=== PATIENT | female | born 1955 | race Caucasian/White ===

== ENCOUNTER 2016-05-27 20:10 | Emergency (ER) | payer OTHER ==
[~2016-05-27] VITALS: Ht 160 cm; Wt 62.1 kg
[~2016-05-27 20:10] MED LIST: ALUM-30 PO; ATOR-22 PO; CALC500C3 PO; LEVO100T7 PO
[2016-05-27 20:16] VITALS: TEMP 36.8; Ht 160 cm; Wt 62.1 kg
[2016-05-27 20:42] VITALS: O2SAT 97
[2016-05-27] MEDS ORDERED: LABETALOL HCL IV 5 MG/ML 20ML IV STA (20:42)
--- NOTE | 2016-05-27 21:10 | EMERGENCY ROOM VISIT NOTE ---
History Report prepared by Nirmal: Yenifer Devries Under the Supervision of: Dr. Jerome Meehan M.D. First contact with patient: 20:40 Chief Complaint: HYPERTENSION Stated Complaint: HIGH BLOOD PRESSURE, IRREGULAR HEART BEAT History of Present Illness The patient is a 60 year old female who presents to the Emergency Room with complaints of intermittent hypertension starting in January 2016. The patient was evaluated in the Emergency Room on February 11 for hypertension. The patient was found to have thyroid problems and she was prescribed 100 mcg of thyroid medications. In late January, the patient was taken off of the thyroid medication by her PCP. A few days later, she started having hypertension. The patient was then started on a diuretic which somewhat improved her blood pressure. This time, she was not placed on any thyroid medication and did not have any problems with her thyroid function. About 2 weeks ago, the patient started having intermittent shakiness, nausea, and weakness. Her PCP prescribed her 88 mg of thyroid medication. On May 19, she took 88 mg of the thyroid medication and started having heart palpitations, a tachycardic rate, hypertension, and a headache. The patient was taken off of the thyroid medication and she was placed on Metoprolol. A few days ago, the patient had repeat blood work which showed hypothyroidism. The patient was placed on 44 mg of thyroid medication. She took the 44 mg of thyroid medication for the first time this morning. About 8 hours ago, the patient started having shakiness and hypertension. Her blood pressure was 172/103. She took Metoprolol about 2 hours ago without relief. The patient denies any chest pain, shortness of breath, or any other complaints. Source of History: patient Onset: January 2016 Position: other (global) Symptom Intensity: 172/103 Quality: other (hypertension) Modifying Factors (Relieving): other (Metoprolol without relief) Associated Symptoms: No SOB, No chest pain Review of Systems See HPI for pertinent positives & negatives. A total of 10 systems reviewed and were otherwise negative. Past Medical & Surgical Medical Problems: (1) High cholesterol Surgical Problems: (1) S/P Mohs surgery for basal cell carcinoma Family History Diabetes mellitus FH: heart disease FHx: hypertension Social History Smoking Status: Never Smoker Alcohol Use: none Drug Use: none Marital Status: Housing Status: lives with significant other Occupation Status: retired Current/Historical Medications Scheduled Atorvastatin (Lipitor), 20 MG PO QAM Chlorthalidone (Hygroton), 12.5 MG PO DAILY Metoprolol Succinate (Toprol Xl), 25 MG PO DAILY Scheduled PRN Calcium Carbonate (Tums), 500-1,000 MG PO DIRECTED PRN for Gas or Constipation Allergies Coded Allergies: Penicillins (Verified Allergy, Intermediate, childhood allergy, 02/12/16) Physical Exam Vital Signs Date Time Temp Pulse Resp B/P Pulse Ox O2 Delivery O2 Flow Rate FiO2 05/27/16 22:33 78 20 146/64 95 Room Air 05/27/16 21:58 71 20 133/79 97 Room Air 05/27/16 21:21 77 18 136/83 94 Room Air 05/27/16 21:02 76 20 161/94 96 Room Air 05/27/16 20:42 97 Room Air 05/27/16 20:36 92 05/27/16 20:16 36.8 110 16 160/98 98 Room Air Physical Exam GENERAL: Patient is in no acute distress. HEENT: No acute trauma, normocephalic atraumatic, mucous membranes moist, no nasal congestion, no scleral icterus. NECK: No stridor, no adenopathy, no meningismus, trachea is midline. LUNGS: Clear to auscultation bilaterally, no wheeze, no rhonchi, breath sounds equal. HEART: Without murmurs gallops or rubs, regular rate and rhythm. ABDOMEN: Soft, nontender, bowel sounds positive, no hernias, no peritonitis. EXTREMITIES: No cyanosis or edema, full range of motion of all the joints without pain or difficulty, no signs for acute trauma. NEUROLOGIC: Oriented x 3, no acute motor or sensory deficits, no focal weakness. SKIN: No rash, no jaundice, no diaphoresis. Medical Decision & Procedures ER Provider Diagnostic Interpretation: X-ray results as stated below per interpretation by me and the radiologist: CHEST ONE VIEW PORTABLE CLINICAL HISTORY: HIGH BLOOD PRESSURE COMPARISON STUDY: 02/12/2016 FINDINGS: The heart is normal in size. There is diffuse elevation of the interstitium. This likely indicates mild pulmonary vascular congestion or less likely interstitial inflammatory process. There are no pleural effusions. There is no lobar consolidation.[ IMPRESSION: Diffuse elevation of the interstitium, possibly secondary to pulmonary vascular congestion. An interstitial inflammatory process could appear similar. Clinical and radiographic follow-up is recommended Electronically signed by: Daryl Katz M.D. 05/27/2016 9:34 PM Dictated Date/Time: 05/27/2016 9:33 PM Laboratory Results 05/27/16 21:00 Red Blood Count 5.20, Mean Corpuscular Volume 83.1, Mean Corpuscular Hemoglobin 29.4, Mean Corpuscular Hemoglobin Concent 35.4, Mean Platelet Volume 10.7, Neutrophils (%) (Auto) 49.1, Lymphocytes (%) (Auto) 40.0, Monocytes (%) (Auto) 9.6, Eosinophils (%) (Auto) 0.8, Basophils (%) (Auto) 0.4, Neutrophils # (Auto) 4.14, Lymphocytes # (Auto) 3.37, Monocytes # (Auto) 0.81, Eosinophils # (Auto) 0.07, Basophils # (Auto) 0.03 05/27/16 21:00 Test 05/27/16 21:00 White Blood Count 8.43 K/uL (4.8-10.8) Red Blood Count 5.20 M/uL (4.2-5.4) Hemoglobin 15.3 g/dL (12.0-16.0) Hematocrit 43.2 % (37-47) Mean Corpuscular Volume 83.1 fL (80-100) Mean Corpuscular Hemoglobin 29.4 pg (25-34) Mean Corpuscular Hemoglobin Concent 35.4 g/dl (32-36) Platelet Count 253 K/uL (130-400) Mean Platelet Volume 10.7 fL (7.4-10.4) Neutrophils (%) (Auto) 49.1 % Lymphocytes (%) (Auto) 40.0 % Monocytes (%) (Auto) 9.6 % Eosinophils (%) (Auto) 0.8 % Basophils (%) (Auto) 0.4 % Neutrophils # (Auto) 4.14 K/uL (1.4-6.5) Lymphocytes # (Auto) 3.37 K/uL (1.2-3.4) Monocytes # (Auto) 0.81 K/uL (0.11-0.59) Eosinophils # (Auto) 0.07 K/uL (0-0.5) Basophils # (Auto) 0.03 K/uL (0-0.2) RDW Standard Deviation 39.2 fL (36.4-46.3) RDW Coefficient of Variation 13.1 % (11.5-14.5) Immature Granulocyte % (Auto) 0.1 % Immature Granulocyte # (Auto) 0.01 K/uL (0.00-0.02) Anion Gap 10.0 mmol/L (3-11) Est Creatinine Clear Calc Drug Dose 61.1 ml/min Estimated GFR () 93.0 Estimated GFR (Non- 80.2 BUN/Creatinine Ratio 18.1 (10-20) Calcium Level 9.8 mg/dl (8.5-10.1) Magnesium Level 2.0 mg/dl (1.8-2.4) Total Bilirubin 0.6 mg/dl (0.2-1) Aspartate Amino Transf (AST/SGOT) 17 U/L (15-37) Alanine Aminotransferase (ALT/SGPT) 18 U/L (12-78) Alkaline Phosphatase 67 U/L (45-117) Pro-B-Type Natriuretic Peptide 62 pg/ml (0-900) Total Protein 7.8 gm/dl (6.4-8.2) Albumin 4.0 gm/dl (3.4-5.0) Globulin 3.8 gm/dl (2.5-4.0) Albumin/Globulin Ratio 1.1 (0.9-2) Thyroid Stimulating Hormone (TSH) 7.090 uIu/ml (0.300-4.500) Free Thyroxine 1.15 ng/dl (0.80-1.60) Laboratory results reviewed by me. Medications Administered Medications (Trade) Dose Ordered Sig/Fern Route Start Time Stop Time Status Last Admin Dose Admin Labetalol HCl (Normodyne IV) 10 mg NOW STAT IV 05/27/16 20:42 05/27/16 20:53 DC 05/27/16 21:01 10 MG ECG Indication: other (Hypertension) Rate (beats per minute): 92 Rhythm: normal sinus Findings: no acute ischemic change, no ectopy ED Course 2039: The patient was evaluated in room B11B. A complete history and physical exam was performed. 2041: Labetalol HCl 10 mg IV 2222: Reevaluated the patient. Discussed results and discharge instructions: She verbalized understanding and agreement. The patient is ready for discharge. Medical Decision Differential diagnosis includes but is not limited to medication reaction, hypothyroid, electrolyte imbalance, hypertension, anemia, anxiety. There is no leukocytosis or concerning anemia. No significant electrolyte abnormality, kidney failure or hepatitis. TSH was slightly high, T4 level was normal. EKG shows a normal sinus rhythm, no acute ischemia. Chest x-ray shows what I believe to be under penetration, no focal infiltrate. No mediastinal widening. The radiologist questioned CHF. A BNP was ordered, this result returned negative, no evidence for CHF by laboratory testing. The patient received IV labetalol, she has done well, her blood pressure is now nicely controlled. She is asymptomatic. I think the patient should stop taking her thyroid medication as every time she takes it, she has a similar reaction to tonight's reaction. She is being referred to her family doctor's office and then likely to endocrinology. She will keep her blood pressure medications the same. If things are worsening, she can return for reassessment. Impression Primary Impression: Hypertension Additional Impression: Palpitations Scribe Attestation The scribe's documentation has been prepared under my direction and personally reviewed by me in its entirety. I confirm that the note above accurately reflects all work, treatment, procedures, and medical decision making performed by me. Departure Information Dispostion Home / Self-Care Referrals Jose Marks M.D. (PCP) Forms HOME CARE DOCUMENTATION FORM, IMPORTANT VISIT INFORMATION, WORK / SCHOOL INSTRUCTIONS Patient Instructions My [facility] [employer] Additional Instructions no more thyroid meds until talk with endocrinology all other meds the same return if worsening lab testing today was ok--thyroid maybe slightly underactive Problem Qualifiers
[2016-05-27 21:15] LABS: BASO % 0.4 %; BASO ABS # 0.03 K/uL (0-0.2); COMPLETE YES; EOS % 0.8 %; HEMATOCRIT 43.2 % (37-47); IG% 0.1 %; LYMPH ABS # 3.37 K/uL (1.2-3.4); MEAN CELL VOLUME 83.1 fL (80-100); MEAN CORPUSCULAR HEMOGLOBIN 29.4 pg (25-34); MEAN CORPUSCULAR HGB CONC 35.4 g/dl (32-36); MEAN PLATELET VOLUME 10.7 fL (7.4-10.4); MONO % 9.6 %; NEUT % 49.1 %; PLATELET COUNT 253 K/uL (130-400); WHITE BLOOD COUNT 8.43 K/uL (4.8-10.8)
--- NOTE | 2016-05-27 21:35 | DIAGNOSTIC IMAGING REPORT ---
CHEST ONE VIEW PORTABLE CLINICAL HISTORY: HIGH BLOOD PRESSURE COMPARISON STUDY: 02/12/2016 FINDINGS: The heart is normal in size. There is diffuse elevation of the interstitium. This likely indicates mild pulmonary vascular congestion or less likely interstitial inflammatory process. There are no pleural effusions. There is no lobar consolidation.[ IMPRESSION: Diffuse elevation of the interstitium, possibly secondary to pulmonary vascular congestion. An interstitial inflammatory process could appear similar. Clinical and radiographic follow-up is recommended Electronically signed by: Daryl Katz M.D. 05/27/2016 9:34 PM Dictated Date/Time: 05/27/2016 9:33 PM
[2016-05-27 21:39] LABS: BUN/CREATININE RATIO 18.1 (10-20); CALCIUM 9.8 mg/dl (8.5-10.1); CREATININE 0.79 mg/dl (0.60-1.20); POTASSIUM 3.4 mmol/L (3.5-5.1)
[2016-05-27] MEDS ORDERED: HYG/25 PO (21:42)
[2016-05-27] MEDS ORDERED: METO25TA3 PO (21:42)
[2016-05-27 21:50] LABS: ALB/GLOB RATIO 1.1 (0.9-2); THYROID STIMULATING HORMONE 7.09 uIu/ml (0.300-4.500)
[2016-05-27 22:33] VITALS: BP 146/64; PULSE 78; O2SAT 95
== END 2016-05-27 22:35 | disposition home or self-care (01) ==
LOC: C.EDB 20:11
DX: I10 Essential (primary) hypertension (principal); R00.2 Palpitations; E78.00 Pure hypercholesterolemia, unspecified; Z82.49 Family history of ischemic heart disease and other diseases of the circulatory system

== ENCOUNTER 2024-09-16 09:09 | Inpatient (IN) ==
--- NOTE | 2024-09-16 09:30 | Emergency Department Note ---
Impression & Plan Hypoxia, Compression fracture of T11 vertebra, Syncope, Fall, Acute pain of left hip, Pain in left lumbar region of back, Hypomagnesemia ED Provider Note CHIEF COMPLAINT: Fall, dizziness, left hip and back pain HISTORY OF PRESENTING ILLNESS: The patient is a 68-year-old female presents to the emergency department with her reporting that 2 days ago she did not feel well and was having episodes of diarrhea. She states that she felt like she did when she had COVID previously. Last evening she woke up to take a COVID test when suddenly she felt dizzy and does not remember what happened after that. She confirms waking up in another room with the left hip and back pain. She states that she was able to ambulate from the house to the car but with a significant amount of discomfort. She was using a wheelchair here in the emergency department. states that when he found her initially after the fall he was yelling at her for about a minute to get her attention. He demoes seizure like activity. She denies fevers, shortness of breath, chest pain, abdominal pain, urinary symptoms, nausea, vomiting, changes in vision, slurred speech, facial droop. She states that she is no longer having any episodes of diarrhea. She also states that she does not currently feel lightheaded or dizzy. REVIEW OF SYSTEMS: See HPI for pertinent positives and pertinent negatives. ALLERGIES: Penicillin, triamterene, hydrochlorothiazide MEDICATIONS: See below PAST MEDICAL HISTORY: See below PHYSICAL EXAM: VITALS: Vitals are noted on the nurse's note and reviewed by myself. Patient was hypoxic at 86% moving from the wheelchair to the bed initially. She was placed on 2% nasal cannula and was between 95-98%. When she ambulated to the restroom she dropped to 77% on room air. He was placed on 2 L nasal cannula and remained above 94%. All other vital stable. GENERAL: 68-year-old female, lying in bed, in no acute distress, nondiaphoretic, well-developed well-nourished. SKIN: Capillary refill less than 2 seconds. No rashes on exam. There is a linear area of ecchymosis on the left side of her back from the top of her scapula down to the mid back area. HEENT: Normocephalic. Atraumatic. PERRLA. EOMI. Nares patent. Mucous membranes moist. Neck is supple without nuchal rigidity. Neck FROM. TM visualized bilaterally without abnormality. Throat without tonsillar hypertrophy, tonsillar exudates, uvula is midline. Normal dentition. HEART: Regular rate and rhythm without murmurs gallops or rubs. LUNGS: Clear to auscultation bilaterally without wheezes, rales or rhonchi. No retractions or accessory muscle use. ABDOMEN: Positive bowel sounds x 4. Soft, nontender, without masses or organomegaly. No guarding or rebound tenderness. MUSCULOSKELETAL: Tenderness to palpation of the left hip. Physical exam was limited secondary to patient discomfort. She moves around slowly when asked. Tenderness upon palpation to the lumbar spine paraspinal region. 2+ dorsal pedis pulse palpated bilaterally. No tremors, tics, or fasciculations. NEURO: Patient was alert and oriented to person place and time. Normal sensation to light and sharp touch. No focal neurological deficits. DIFFERENTIAL DIAGNOSIS: ED COURSE AND MEDICAL DECISION MAKING: HISTORY FROM INDEPENDENT HISTORIAN: The patient herself and her . MEDICATIONS GIVEN: Tylenol 1000 mg IV, 1 L normal saline, morphine 2 mg IV, 4 mg Zofran IV MONITOR: Continuous cafeteria monitor: Order was placed for continuous cafeteria monitor. Patient was placed on the cafeteria monitor and continuous pulse ox. Patient was noted to be in normal sinus rhythm at an initial rate of 100 bpm per my interpretation. EKG: EKG was interpreted by myself as normal sinus rhythm. No obvious arrhythmias. INTERPRETATION OF LABS: I interpreted the labs with full lab results as below in the lab section of this note. Pertinent lab results discussed in the MDM section below. INTERPRETATION OF IMAGING: Imaging studies were interpreted by myself and read by radiology as per the imaging section of this note. CT head - No acute intracranial abnormality. Chest x-ray - No acute cardiopulmonary process. Mild right basilar atelectasis versus scarring. No pneumothorax or pleural effusion. No pneumonia. X-ray left hip - No acute fracture or dislocation. Mild osteoarthritis. X-ray lumbar spine - No acute fracture or subluxation. Chronic L1 and L4 compression deformities. Levoscoliosis. CTA - No pulmonary emboli visualized. Bibasilar densities suggesting atelectasis/scarring. CT abdomen pelvis - Acute to subacute mild T11 compression deformity without retropulsion. Chronic lumbar spine compression fracture. No bowel obstruction or bowel wall thickening. ESCALATION OF CARE CONSIDERED: Escalation of care was considered to the patient having 2 syncopal episodes and presenting to the ER for evaluation. Thorough workup was completed but the patient became hypoxic in the 70s upon ambulating on 2 different occasions. The patient was admitted to the hospitalist team for further evaluation. CONSULTATIONS: On-call [facility] hospitalist Dora Caldera presented the patient to the provider and inform them that a full workup was completed here in the emergency department significant findings but that the patient becomes hypoxic at 75-78% upon ambulating and standing up. Discussed admission with him for further workup of hypoxia and they agreed to evaluate the patient for admission. MDM SUMMARY: I evaluated this 68-year-old female presents the ER due to left hip and back pain as well as feeling dizzy and falling last evening not remembering the event. She confirms waking up last night to take a COVID test when she suddenly felt dizzy and woke up in another room and not remembering the events. Informed that she thinks she had fallen down on her left hip and back and reports pain. She was able to ambulate but with significant discomfort. She denies fevers, shortness of breath, chest pain, abdominal pain, urinary symptoms, nausea, vomiting, changes in vision, slurred speech, facial droop. She states that she is no longer having any episodes of diarrhea. She also states that she does not currently feel lightheaded or dizzy. On exam she is lying comfortably in bed. Her vitals were stable in triage but when she was moved from the wheelchair into the bed he was hypoxic at 85%. The patient was started on 2 L nasal cannula. She is now ranging from 93 to 96%. She does not use oxygen normally. She is afebrile. There is a linear area of ecchymosis appreciated on the left side of her back from the scapula down the middle region of her back. She does not remember the event but it appears as if she had fallen into the corner of a door. HEENT exam is unremarkable. Chest auscultation reveals RRR without murmurs. The lungs are clear to auscultation bilaterally without wheezing rhonchi or rales. The abdomen is soft and nontender. Tenderness upon palpation to the left hip and the lumbar back. Physical exam is extremely limited secondary to patient discomfort. Neurovascularly intact. Patient was alert and oriented. No focal neurological deficits. Patient confirms taking an extra strength Tylenol this morning 3 hours ago. Leukocytosis WBC elevated 13.05. RBC 4.82. Hemoglobin hematocrit 13.5/39.9. No electrolyte abnormalities. BUN elevated 28. Creatinine elevated 1.75. I discussed this with the patient and she states, "I took a medication and had an adverse reaction to it and it impacted my kidneys". She does confirm that these levels have been elevated in the past and that she has been following up with her primary care provider for reevaluations. She reports most recent blood work completed by primary care BUN 23 and creatinine 1.3. These are elevated today in comparison. She does confirm that she has been dehydrated the past couple of days and has not been drinking a lot of water. 1 L normal saline was provided. Glucose 114. AST 26. ALT 21. Troponin normal 3.9. BNP 29. Magnesium low 1.6. This was repleted. Bio fire results negative. EKG shows an initial rate of [address] head shows no acute intracranial abnormality. Chest x-ray without cardiopulmonary process. X-ray of the left hip and lumbar spine show no acute fracture or subluxation. Chronic findings were thoroughly reviewed with the patient. On the patient ambulated to the restroom to provide a urine sample she dropped to 84% on room air. The patient was placed on 2 L nasal cannula and returned to 95-98%. CTA chest and CT abdomen pelvis were ordered to further investigate why the patient is becoming hypoxic. CTA shows no pulmonary emboli. Bibasilar densities suggesting atelectasis/scarring which is also seen on chest x-ray. CT abdomen pelvis shows an acute mild T11 compression deformity without retropulsion. No other acute findings on imaging. Ambulated once again to use the restroom and dropped again to 77% on room air. Patient denies shortness of breath but on exam is visibly short of breath and gasping for air. Patient was placed on 3 L nasal cannula and returned to 98% on room air. I discussed with the patient that it is not safe for her to go home at this time and that it is best she is admitted to the hospital for further evaluation of her hypoxia. Patient is tearful on exam but agrees to the plan. [facility] They agreed to admission of the patient and would personally evaluate her. The patient was admitted in stable condition. DIAGNOSIS: Hypoxia, compression fracture of T11 vertebra, syncope, fall, acute pain of left hip, pain in left lumbar region of back, hypomagnesemia The chart was completed utilizing [employer] Speech voice recognition software. Grammatical errors, random word insertions, pronoun errors, and incomplete sentences are an occasional consequence of this system due to software limitations, ambient noise, and hardware issues. Any formal questions or concerns about the content, text, or information contained within the body of this dictation should be directly addressed to the provider for clarification. Past Med/Surg History Problem List (Updated 09/16/24 @ 15:29 by Yasmine Farah MD) Abnormal CT of the chest Acute hypoxic respiratory failure Hypomagnesemia (Acute) Pain in left lumbar region of back (Acute) Acute pain of left hip (Acute) Fall (Acute) Syncope (Acute) Compression fracture of T11 vertebra (Acute) Hypoxia (Acute) Osteoarthritis of left knee Hematuria, microscopic High cholesterol (Chronic) Hypertension (Acute) Medical History (Updated 09/16/24 @ 15:29 by Yasmine Farah MD) Hypothyroidism Essential hypertension Family History Father Diabetes Heart disease Hypertension Sister Cervical cancer Social History Smoking Status: Never smoker Hx Alcohol Use: No Hx Substance Use: No Preferred Language: Yi Communication Ability: Effective Urban [employer]ster Required: No Beliefs That Will Affect Care: None marital status: Current Living Situation: Spouse current occupational status: retired Feels Safe at Home: Yes Safety Concerns: Feels Safe At This Time Assistive Devices: None Allergies Allergies Allergy/AdvReac Type Severity Reaction Status Date / Time hydrochlorothiazide Allergy Severe Rash Unverified 09/16/24 11:13 [From Maxzide] triamterene [From Maxzide] Allergy Severe Rash Unverified 09/16/24 11:13 Penicillins Allergy Intermediate childhood Verified 09/16/24 11:13 allergy Home Meds Home Medications Medication Instructions Recorded Confirmed metoprolol succinate 100 mg 100 mg PO QAM 05/26/19 09/16/24 tablet,extended release 24 hr atorvastatin 40 mg tablet 40 mg PO QAM 10/18/23 09/16/24 levothyroxine 50 mcg tablet 50 mcg PO QAM 10/18/23 09/16/24 amlodipine 5 mg tablet 5 mg PO HS 09/16/24 09/16/24 omeprazole magnesium 20 mg 20 mg PO QAM 09/16/24 09/16/24 tablet,delayed release (Prilosec OTC) Results & Data (ED) Vital Signs Vital Signs - 24 hr 09/16/24 09:23 09/16/24 09:26 09/16/24 09:27 Temperature 36.4 C L Temperature Source Temporal Artery Scan Pulse Rate - Lying Pulse Rate - Sitting Pulse Rate - Standing Pulse Rate 86 Pulse Rate [Apical] 91 H Respiratory Rate 20 20 Respiratory Effort / Characteristics Non-Labored Spontaneous Non-Labored Spontaneous Respiratory Depth Normal Normal Respiratory Pattern Regular Regular Blood Pressure - Lying Blood Pressure - Sitting Blood Pressure- Standing Blood Pressure 95/65 L Blood Pressure [Right Arm] 106/76 Blood Pressure Mean 75 Blood Pressure Mean [Right Arm] 86 Blood Pressure Position [Right Arm] Sitting Pulse Oximetry 94 84 L 95 Oxygen Delivery Method Room Air Room Air Nasal Cannula Oxygen Flow Rate 2 Sepsis Recent Fever Within 48 Hours No Sepsis New/Unexplained Change in Mental Status N/A Sepsis Action Taken by Nursing No Action Required 09/16/24 09:41 09/16/24 09:45 09/16/24 13:10 Temperature Temperature Source Pulse Rate - Lying Pulse Rate - Sitting Pulse Rate - Standing Pulse Rate 90 Pulse Rate [Apical] 68 Respiratory Rate 18 Respiratory Effort / Characteristics Non-Labored Spontaneous Respiratory Depth Normal Respiratory Pattern Regular Blood Pressure - Lying Blood Pressure - Sitting Blood Pressure- Standing Blood Pressure Blood Pressure [Right Arm] 115/73 Blood Pressure Mean Blood Pressure Mean [Right Arm] 87 Blood Pressure Position [Right Arm] Sitting Pulse Oximetry 95 95 Oxygen Delivery Method Nasal Cannula Nasal Cannula Oxygen Flow Rate 2 3 Sepsis Recent Fever Within 48 Hours Sepsis New/Unexplained Change in Mental Status Sepsis Action Taken by Nursing 09/16/24 13:16 09/16/24 13:55 Temperature Temperature Source Pulse Rate - Lying 76 Pulse Rate - Sitting 84 Pulse Rate - Standing 83 Pulse Rate 79 Pulse Rate [Apical] Respiratory Rate Respiratory Effort / Characteristics Respiratory Depth Respiratory Pattern Blood Pressure - Lying 136/76 Blood Pressure - Sitting 133/80 Blood Pressure- Standing 116/67 Blood Pressure Blood Pressure [Right Arm] Blood Pressure Mean Blood Pressure Mean [Right Arm] Blood Pressure Position [Right Arm] Pulse Oximetry Oxygen Delivery Method Oxygen Flow Rate Sepsis Recent Fever Within 48 Hours Sepsis New/Unexplained Change in Mental Status Sepsis Action Taken by Nursing Laboratory Data 09/16/24 10:15 09/16/24 09:41 Lab Results 09/16/24 09/16/24 09/16/24 Range/Units 09:35 09:41 10:15 WBC Cancelled RBC Hgb Hct MCV MCH MCHC RDW Std Deviation RDW Coeff of [place] Plt Count MPV Immature Gran % (Auto) Neut % (Auto) Lymph % (Auto) [place] % (Auto) Eos % (Auto) Baso % (Auto) Neut # (Auto) Lymph # (Auto) [place] # (Auto) Eos # (Auto) Baso # (Auto) Immature Gran # (Auto) Absolute Nucleated RBC Nucleated RBC % (auto) Neutrophils % (Manual) Band Neutrophils % Lymphocytes % (Manual) Prolymphocyte % Reactive Lymphs % (Man) Monocytes % (Manual) Eosinophils % (Manual) Basophils % (Manual) Metamyelocytes % (Man) Myelocytes % (Man) Promyelocytes % (Man) Blast Cells % (Manual) Plasma Cell % (Manual) Other Cells % Nucleated RBC % Neutrophils # (Manual) Band Neutrophils # Total Absolute Neuts Lymphocytes # (Manual) Prolymphocyte # Reactive Lymphs # Total Abs Lymphocytes Monocytes # (Manual) Eosinophils # (Manual) Basophils # (Manual) Metamyelocytes # (Man) Myelocytes # (Manual) Promyelocytes # (Man) Blast Cells # (Man) Plasma Cell # (Manual) Other Cells # Nucleated RBCs # (Man) Hypersegmented Neuts Hyposegmented Neuts Hypogranular Neuts Large Granular Lymphs # Lrg Granular Lymphs Hairy Cells Smudge Cells Toxic Granulation Toxic Vacuolation Dohle Bodies Shell Rods Platelet Estimate Hypogranular Platelets Giant Platelets Platelet Satelliting RBC Morphology Polychromasia Hypochromasia Poikilocytosis Basophilic Stippling Anisocytosis Microcytosis Macrocytosis Spherocytes Pappenheimer Bodies Sickle Cells Target Cells Tear Drop Cells Ovalocytes Stomatocytes [place] Bodies Echinocytes Acanthocytes (Spur) Rouleaux RBC Agglutinates Schistocytes Sezary Cell Sodium 136 (136-145) mmol/L Potassium 3.9 (3.5-5.1) mmol/L Chloride 103 (98-107) mmol/L Carbon Dioxide 22 (21-32) mmol/L Anion Gap 11 (3-11) BUN 28 H (6-23) mg/dl Creatinine 1.75 H (0.6-1.2) mg/dl Est Cr Clr Drug Dosing Not Reportable eGFR 30.96 BUN/Creatinine Ratio 16.0 (10-20) Glucose 114 H (70-99(Fasting)) mg/dl Calcium 9.5 (8.6-10.3) mg/dl Magnesium 1.6 L (1.7-2.4) mg/dl Total Bilirubin 0.6 (0.2-1.0) mg/dl AST 26 (13-39) U/L ALT 21 (7-52) U/L Alkaline Phosphatase 84 (34-104) U/L Troponin I High Sens 3.9 (0-14) pg/ml Total Protein 7.9 (6.0-8.3) gm/dl Albumin 4.3 (3.4-5.0) gm/dl Globulin 3.6 (2.5-4.0) gm/dl Albumin/Globulin Ratio 1.2 (0.9-2) 25-OH Vitamin D Total 37.1 (30-100) ng/ml TSH 3.827 (0.300-4.500) uIu/ml Urine Color Urine Appearance (Clear) Urine pH (4.5-7.5) Ur Specific [place] (1.000-1.030) Urine Protein (Negative) Urine Glucose (UA) (Negative) Urine Ketones (Negative) Urine Blood (Negative) Urine Nitrite (Negative) Urine Bilirubin (Negative) Urine Urobilinogen (Negative) Ur Leukocyte Esterase (Negative) Urine WBC (Auto) (0-5) /hpf Urine RBC (Auto) (0-2) /hpf U Hyaline Cast (Auto) (0-2) /lpf U Epithel Cells (Auto) (0-2) /hpf Urine Bacteria (Auto) (None Seen) Granular Casts (None Prsent) /lpf Urine Comment Adenovirus (PCR) Not Detected (NotDetected) B. pertussis DNA (PCR) Not Detected (NotDetected) B.parapertussis DNA PCR Not Detected (NotDetected) C. pneumoniae DNA (PCR) Not Detected (NotDetected) Coronavirus OC43 (PCR) Not Detected (NotDetected) Coronavirus HKU1 (PCR) Not Detected (NotDetected) Coronavirus 229E (PCR) Not Detected (NotDetected) SARS-CoV-2 (PCR) Not Detected (NotDetected) Coronavirus NL63 (PCR) Not Detected (NotDetected) Human Metapneumovir PCR Not Detected (NotDetected) Influenza Type A (PCR) Not Detected (NotDetected) Influenza Type B (PCR) Not Detected (NotDetected) M. pneumoniae (PCR) Not Detected (NotDetected) Parainfluenza 1 (PCR) Not Detected (NotDetected) Parainfluenza 2 (PCR) Not Detected (NotDetected) Parainfluenza 3 (PCR) Not Detected (NotDetected) Parainfluenza 4 (PCR) Not Detected (NotDetected) RSV (PCR) Not Detected (NotDetected) Entero/Rhino (PCR) Not Detected (NotDetected) Blood Parasites ID 09/16/24 09/16/24 09/16/24 Range/Units 10:15 10:15 10:15 WBC 13.05 H RBC Cancelled 4.82 Hgb Cancelled 13.5 Hct Cancelled MCV MCH MCHC RDW Std Deviation RDW Coeff of [place] Plt Count MPV Immature Gran % (Auto) Neut % (Auto) Lymph % (Auto) [place] % (Auto) Eos % (Auto) Baso % (Auto) Neut # (Auto) Lymph # (Auto) [place] # (Auto) Eos # (Auto) Baso # (Auto) Immature Gran # (Auto) Absolute Nucleated RBC Nucleated RBC % (auto) Neutrophils % (Manual) Band Neutrophils % Lymphocytes % (Manual) Prolymphocyte % Reactive Lymphs % (Man) Monocytes % (Manual) Eosinophils % (Manual) Basophils % (Manual) Metamyelocytes % (Man) Myelocytes % (Man) Promyelocytes % (Man) Blast Cells % (Manual) Plasma Cell % (Manual) Other Cells % Nucleated RBC % Neutrophils # (Manual) Band Neutrophils # Total Absolute Neuts Lymphocytes # (Manual) Prolymphocyte # Reactive Lymphs # Total Abs Lymphocytes Monocytes # (Manual) Eosinophils # (Manual) Basophils # (Manual) Metamyelocytes # (Man) Myelocytes # (Manual) Promyelocytes # (Man) Blast Cells # (Man) Plasma Cell # (Manual) Other Cells # Nucleated RBCs # (Man) Hypersegmented Neuts Hyposegmented Neuts Hypogranular Neuts Large Granular Lymphs # Lrg Granular Lymphs Hairy Cells Smudge Cells Toxic Granulation Toxic Vacuolation Dohle Bodies Shell Rods Platelet Estimate Hypogranular Platelets Giant Platelets Platelet Satelliting RBC Morphology Polychromasia Hypochromasia Poikilocytosis Basophilic Stippling Anisocytosis Microcytosis Macrocytosis Spherocytes Pappenheimer Bodies Sickle Cells Target Cells Tear Drop Cells Ovalocytes Stomatocytes [place] Bodies Echinocytes Acanthocytes (Spur) Rouleaux RBC Agglutinates Schistocytes [place] Cell Sodium (136-145) mmol/L Potassium (3.5-5.1) mmol/L Chloride (98-107) mmol/L Carbon Dioxide (21-32) mmol/L Anion Gap (3-11) BUN (6-23) mg/dl Creatinine (0.6-1.2) mg/dl Est Cr Clr Drug Dosing eGFR BUN/Creatinine Ratio (10-20) Glucose (70-99(Fasting)) mg/dl Calcium (8.6-10.3) mg/dl Magnesium (1.7-2.4) mg/dl Total Bilirubin (0.2-1.0) mg/dl AST (13-39) U/L ALT (7-52) U/L Alkaline Phosphatase (34-104) U/L Troponin I High Sens (0-14) pg/ml Total Protein (6.0-8.3) gm/dl Albumin (3.4-5.0) gm/dl Globulin (2.5-4.0) gm/dl Albumin/Globulin Ratio (0.9-2) 25-OH Vitamin D Total (30-100) ng/ml TSH (0.300-4.500) uIu/ml Urine Color Urine Appearance (Clear) Urine pH (4.5-7.5) Ur Specific [place] (1.000-1.030) Urine Protein (Negative) Urine Glucose (UA) (Negative) Urine Ketones (Negative) Urine Blood (Negative) Urine Nitrite (Negative) Urine Bilirubin (Negative) Urine Urobilinogen (Negative) Ur Leukocyte Esterase (Negative) Urine WBC (Auto) (0-5) /hpf Urine RBC (Auto) (0-2) /hpf U Hyaline Cast (Auto) (0-2) /lpf U Epithel Cells (Auto) (0-2) /hpf Urine Bacteria (Auto) (None Seen) Granular Casts (None Prsent) /lpf Urine Comment Adenovirus (PCR) (NotDetected) B. pertussis DNA (PCR) (NotDetected) B.parapertussis DNA PCR (NotDetected) C. pneumoniae DNA (PCR) (NotDetected) Coronavirus OC43 (PCR) (NotDetected) Coronavirus HKU1 (PCR) (NotDetected) Coronavirus 229E (PCR) (NotDetected) SARS-CoV-2 (PCR) (NotDetected) Coronavirus NL63 (PCR) (NotDetected) Human Metapneumovir PCR (NotDetected) Influenza Type A (PCR) (NotDetected) Influenza Type B (PCR) (NotDetected) M. pneumoniae (PCR) (NotDetected) Parainfluenza 1 (PCR) (NotDetected) Parainfluenza 2 (PCR) (NotDetected) Parainfluenza 3 (PCR) (NotDetected) Parainfluenza 4 (PCR) (NotDetected) RSV (PCR) (NotDetected) Entero/Rhino (PCR) (NotDetected) Blood Parasites ID 09/16/24 09/16/24 09/16/24 Range/Units 10:15 10:15 10:15 WBC RBC Hgb Hct 39.9 MCV Cancelled 82.8 MCH Cancelled 28.0 MCHC Cancelled RDW Std Deviation RDW Coeff of [place] Plt Count MPV Immature Gran % (Auto) Neut % (Auto) Lymph % (Auto) [place] % (Auto) Eos % (Auto) Baso % (Auto) Neut # (Auto) Lymph # (Auto) [place] # (Auto) Eos # (Auto) Baso # (Auto) Immature Gran # (Auto) Absolute Nucleated RBC Nucleated RBC % (auto) Neutrophils % (Manual) Band Neutrophils % Lymphocytes % (Manual) Prolymphocyte % Reactive Lymphs % (Man) Monocytes % (Manual) Eosinophils % (Manual) Basophils % (Manual) Metamyelocytes % (Man) Myelocytes % (Man) Promyelocytes % (Man) Blast Cells % (Manual) Plasma Cell % (Manual) Other Cells % Nucleated RBC % Neutrophils # (Manual) Band Neutrophils # Total Absolute Neuts Lymphocytes # (Manual) Prolymphocyte # Reactive Lymphs # Total Abs Lymphocytes Monocytes # (Manual) Eosinophils # (Manual) Basophils # (Manual) Metamyelocytes # (Man) Myelocytes # (Manual) Promyelocytes # (Man) Blast Cells # (Man) Plasma Cell # (Manual) Other Cells # Nucleated RBCs # (Man) Hypersegmented Neuts Hyposegmented Neuts Hypogranular Neuts Large Granular Lymphs # Lrg Granular Lymphs Hairy Cells Smudge Cells Toxic Granulation Toxic Vacuolation Dohle Bodies Shell Rods Platelet Estimate Hypogranular Platelets [place] Platelets Platelet Satelliting RBC Morphology Polychromasia Hypochromasia Poikilocytosis Basophilic Stippling Anisocytosis Microcytosis Macrocytosis Spherocytes Pappenheimer Bodies Sickle Cells Target Cells Tear Drop Cells Ovalocytes Stomatocytes [place] Bodies Echinocytes Acanthocytes (Spur) Rouleaux RBC Agglutinates Schistocytes [place] Cell Sodium (136-145) mmol/L Potassium (3.5-5.1) mmol/L Chloride (98-107) mmol/L Carbon Dioxide (21-32) mmol/L Anion Gap (3-11) BUN (6-23) mg/dl Creatinine (0.6-1.2) mg/dl Est Cr Clr Drug Dosing eGFR BUN/Creatinine Ratio (10-20) Glucose (70-99(Fasting)) mg/dl Calcium (8.6-10.3) mg/dl Magnesium (1.7-2.4) mg/dl Total Bilirubin (0.2-1.0) mg/dl AST (13-39) U/L ALT (7-52) U/L Alkaline Phosphatase (34-104) U/L Troponin I High Sens (0-14) pg/ml Total Protein (6.0-8.3) gm/dl Albumin (3.4-5.0) gm/dl Globulin (2.5-4.0) gm/dl Albumin/Globulin Ratio (0.9-2) 25-OH Vitamin D Total (30-100) ng/ml TSH (0.300-4.500) uIu/ml Urine Color Urine Appearance (Clear) Urine pH (4.5-7.5) Ur Specific [place] (1.000-1.030) Urine Protein (Negative) Urine Glucose (UA) (Negative) Urine Ketones (Negative) Urine Blood (Negative) Urine Nitrite (Negative) Urine Bilirubin (Negative) Urine Urobilinogen (Negative) Ur Leukocyte Esterase (Negative) Urine WBC (Auto) (0-5) /hpf Urine RBC (Auto) (0-2) /hpf U Hyaline Cast (Auto) (0-2) /lpf U Epithel Cells (Auto) (0-2) /hpf Urine Bacteria (Auto) (None Seen) Granular Casts (None Prsent) /lpf Urine Comment Adenovirus (PCR) (NotDetected) B. pertussis DNA (PCR) (NotDetected) B.parapertussis DNA PCR (NotDetected) C. pneumoniae DNA (PCR) (NotDetected) Coronavirus OC43 (PCR) (NotDetected) Coronavirus HKU1 (PCR) (NotDetected) Coronavirus 229E (PCR) (NotDetected) SARS-CoV-2 (PCR) (NotDetected) Coronavirus NL63 (PCR) (NotDetected) Human Metapneumovir PCR (NotDetected) Influenza Type A (PCR) (NotDetected) Influenza Type B (PCR) (NotDetected) M. pneumoniae (PCR) (NotDetected) Parainfluenza 1 (PCR) (NotDetected) Parainfluenza 2 (PCR) (NotDetected) Parainfluenza 3 (PCR) (NotDetected) Parainfluenza 4 (PCR) (NotDetected) RSV (PCR) (NotDetected) Entero/Rhino (PCR) (NotDetected) Blood Parasites ID 09/16/24 09/16/24 09/16/24 Range/Units 10:15 10:15 10:15 WBC RBC Hgb Hct MCV MCH MCHC 33.8 RDW Std Deviation Cancelled 40.1 RDW Coeff of [place] Cancelled 13.3 Plt Count Cancelled MPV Immature Gran % (Auto) Neut % (Auto) Lymph % (Auto) [place] % (Auto) Eos % (Auto) Baso % (Auto) Neut # (Auto) Lymph # (Auto) [place] # (Auto) Eos # (Auto) Baso # (Auto) Immature Gran # (Auto) Absolute Nucleated RBC Nucleated RBC % (auto) Neutrophils % (Manual) Band Neutrophils % Lymphocytes % (Manual) Prolymphocyte % Reactive Lymphs % (Man) Monocytes % (Manual) Eosinophils % (Manual) Basophils % (Manual) Metamyelocytes % (Man) Myelocytes % (Man) Promyelocytes % (Man) Blast Cells % (Manual) Plasma Cell % (Manual) Other Cells % Nucleated RBC % Neutrophils # (Manual) Band Neutrophils # Total Absolute Neuts Lymphocytes # (Manual) Prolymphocyte # Reactive Lymphs # Total Abs Lymphocytes Monocytes # (Manual) Eosinophils # (Manual) Basophils # (Manual) Metamyelocytes # (Man) Myelocytes # (Manual) Promyelocytes # (Man) Blast Cells # (Man) Plasma Cell # (Manual) Other Cells # Nucleated RBCs # (Man) Hypersegmented Neuts Hyposegmented Neuts Hypogranular Neuts Large Granular Lymphs # Lrg Granular Lymphs Hairy Cells Smudge Cells Toxic Granulation Toxic Vacuolation Dohle Bodies Shell Rods Platelet Estimate Hypogranular Platelets Giant Platelets Platelet Satelliting RBC Morphology Polychromasia Hypochromasia Poikilocytosis Basophilic Stippling Anisocytosis Microcytosis Macrocytosis Spherocytes Pappenheimer Bodies Sickle Cells Target Cells Tear Drop Cells Ovalocytes Stomatocytes [place] Bodies Echinocytes Acanthocytes (Spur) Rouleaux RBC Agglutinates Schistocytes Sezary Cell Sodium (136-145) mmol/L Potassium (3.5-5.1) mmol/L Chloride (98-107) mmol/L Carbon Dioxide (21-32) mmol/L Anion Gap (3-11) BUN (6-23) mg/dl Creatinine (0.6-1.2) mg/dl Est Cr Clr Drug Dosing eGFR BUN/Creatinine Ratio (10-20) Glucose (70-99(Fasting)) mg/dl Calcium (8.6-10.3) mg/dl Magnesium (1.7-2.4) mg/dl Total Bilirubin (0.2-1.0) mg/dl AST (13-39) U/L ALT (7-52) U/L Alkaline Phosphatase (34-104) U/L Troponin I High Sens (0-14) pg/ml Total Protein (6.0-8.3) gm/dl Albumin (3.4-5.0) gm/dl Globulin (2.5-4.0) gm/dl Albumin/Globulin Ratio (0.9-2) 25-OH Vitamin D Total (30-100) ng/ml TSH (0.300-4.500) uIu/ml Urine Color Urine Appearance (Clear) Urine pH (4.5-7.5) Ur Specific [place] (1.000-1.030) Urine Protein (Negative) Urine Glucose (UA) (Negative) Urine Ketones (Negative) Urine Blood (Negative) Urine Nitrite (Negative) Urine Bilirubin (Negative) Urine Urobilinogen (Negative) Ur Leukocyte Esterase (Negative) Urine WBC (Auto) (0-5) /hpf Urine RBC (Auto) (0-2) /hpf U Hyaline Cast (Auto) (0-2) /lpf U Epithel Cells (Auto) (0-2) /hpf Urine Bacteria (Auto) (None Seen) Granular Casts (None Prsent) /lpf Urine Comment Adenovirus (PCR) (NotDetected) B. pertussis DNA (PCR) (NotDetected) B.parapertussis DNA PCR (NotDetected) C. pneumoniae DNA (PCR) (NotDetected) Coronavirus OC43 (PCR) (NotDetected) Coronavirus HKU1 (PCR) (NotDetected) Coronavirus 229E (PCR) (NotDetected) SARS-CoV-2 (PCR) (NotDetected) Coronavirus NL63 (PCR) (NotDetected) Human Metapneumovir PCR (NotDetected) Influenza Type A (PCR) (NotDetected) Influenza Type B (PCR) (NotDetected) M. pneumoniae (PCR) (NotDetected) Parainfluenza 1 (PCR) (NotDetected) Parainfluenza 2 (PCR) (NotDetected) Parainfluenza 3 (PCR) (NotDetected) Parainfluenza 4 (PCR) (NotDetected) RSV (PCR) (NotDetected) Entero/Rhino (PCR) (NotDetected) Blood Parasites ID 09/16/24 09/16/24 09/16/24 Range/Units 10:15 10:15 10:15 WBC RBC Hgb Hct MCV MCH MCHC RDW Std Deviation RDW Coeff of [place] Plt Count 230 MPV Cancelled 10.7 Immature Gran % (Auto) Cancelled 0.7 Neut % (Auto) Cancelled Lymph % (Auto) [place] % (Auto) Eos % (Auto) Baso % (Auto) Neut # (Auto) Lymph # (Auto) [place] # (Auto) Eos # (Auto) Baso # (Auto) Immature Gran # (Auto) Absolute Nucleated RBC Nucleated RBC % (auto) Neutrophils % (Manual) Band Neutrophils % Lymphocytes % (Manual) Prolymphocyte % Reactive Lymphs % (Man) Monocytes % (Manual) Eosinophils % (Manual) Basophils % (Manual) Metamyelocytes % (Man) Myelocytes % (Man) Promyelocytes % (Man) Blast Cells % (Manual) Plasma Cell % (Manual) Other Cells % Nucleated RBC % Neutrophils # (Manual) Band Neutrophils # Total Absolute Neuts Lymphocytes # (Manual) Prolymphocyte # Reactive Lymphs # Total Abs Lymphocytes Monocytes # (Manual) Eosinophils # (Manual) Basophils # (Manual) Metamyelocytes # (Man) Myelocytes # (Manual) Promyelocytes # (Man) Blast Cells # (Man) Plasma Cell # (Manual) Other Cells # Nucleated RBCs # (Man) Hypersegmented Neuts Hyposegmented Neuts Hypogranular Neuts Large Granular Lymphs # Lrg Granular Lymphs Hairy Cells Smudge Cells Toxic Granulation Toxic Vacuolation Dohle Bodies Shell Rods Platelet Estimate Hypogranular Platelets Giant Platelets Platelet Satelliting RBC Morphology Polychromasia Hypochromasia Poikilocytosis Basophilic Stippling Anisocytosis Microcytosis Macrocytosis Spherocytes Pappenheimer Bodies Sickle Cells Target Cells Tear Drop Cells Ovalocytes Stomatocytes [place] Bodies Echinocytes Acanthocytes (Spur) Rouleaux RBC Agglutinates Schistocytes Sezary Cell Sodium (136-145) mmol/L Potassium (3.5-5.1) mmol/L Chloride (98-107) mmol/L Carbon Dioxide (21-32) mmol/L Anion Gap (3-11) BUN (6-23) mg/dl Creatinine (0.6-1.2) mg/dl Est Cr Clr Drug Dosing eGFR BUN/Creatinine Ratio (10-20) Glucose (70-99(Fasting)) mg/dl Calcium (8.6-10.3) mg/dl Magnesium (1.7-2.4) mg/dl Total Bilirubin (0.2-1.0) mg/dl AST (13-39) U/L ALT (7-52) U/L Alkaline Phosphatase (34-104) U/L Troponin I High Sens (0-14) pg/ml Total Protein (6.0-8.3) gm/dl Albumin (3.4-5.0) gm/dl Globulin (2.5-4.0) gm/dl Albumin/Globulin Ratio (0.9-2) 25-OH Vitamin D Total (30-100) ng/ml TSH (0.300-4.500) uIu/ml Urine Color Urine Appearance (Clear) Urine pH (4.5-7.5) Ur Specific [place] (1.000-1.030) Urine Protein (Negative) Urine Glucose (UA) (Negative) Urine Ketones (Negative) Urine Blood (Negative) Urine Nitrite (Negative) Urine Bilirubin (Negative) Urine Urobilinogen (Negative) Ur Leukocyte Esterase (Negative) Urine WBC (Auto) (0-5) /hpf Urine RBC (Auto) (0-2) /hpf U Hyaline Cast (Auto) (0-2) /lpf U Epithel Cells (Auto) (0-2) /hpf Urine Bacteria (Auto) (None Seen) Granular Casts (None Prsent) /lpf Urine Comment Adenovirus (PCR) (NotDetected) B. pertussis DNA (PCR) (NotDetected) B.parapertussis DNA PCR (NotDetected) C. pneumoniae DNA (PCR) (NotDetected) Coronavirus OC43 (PCR) (NotDetected) Coronavirus HKU1 (PCR) (NotDetected) Coronavirus 229E (PCR) (NotDetected) SARS-CoV-2 (PCR) (NotDetected) Coronavirus NL63 (PCR) (NotDetected) Human Metapneumovir PCR (NotDetected) Influenza Type A (PCR) (NotDetected) Influenza Type B (PCR) (NotDetected) M. pneumoniae (PCR) (NotDetected) Parainfluenza 1 (PCR) (NotDetected) Parainfluenza 2 (PCR) (NotDetected) Parainfluenza 3 (PCR) (NotDetected) Parainfluenza 4 (PCR) (NotDetected) RSV (PCR) (NotDetected) Entero/Rhino (PCR) (NotDetected) Blood Parasites ID 09/16/24 09/16/24 09/16/24 Range/Units 10:15 10:15 10:15 WBC RBC Hgb Hct MCV MCH MCHC RDW Std Deviation RDW Coeff of [place] Plt Count MPV Immature Gran % (Auto) Neut % (Auto) 71.4 Lymph % (Auto) Cancelled 15.9 [place] % (Auto) Cancelled 11.7 Eos % (Auto) Cancelled Baso % (Auto) Neut # (Auto) Lymph # (Auto) [place] # (Auto) Eos # (Auto) Baso # (Auto) Immature Gran # (Auto) Absolute Nucleated RBC Nucleated RBC % (auto) Neutrophils % (Manual) Band Neutrophils % Lymphocytes % (Manual) Prolymphocyte % Reactive Lymphs % (Man) Monocytes % (Manual) Eosinophils % (Manual) Basophils % (Manual) Metamyelocytes % (Man) Myelocytes % (Man) Promyelocytes % (Man) Blast Cells % (Manual) Plasma Cell % (Manual) Other Cells % Nucleated RBC % Neutrophils # (Manual) Band Neutrophils # Total Absolute Neuts Lymphocytes # (Manual) Prolymphocyte # Reactive Lymphs # Total Abs Lymphocytes Monocytes # (Manual) Eosinophils # (Manual) Basophils # (Manual) Metamyelocytes # (Man) Myelocytes # (Manual) Promyelocytes # (Man) Blast Cells # (Man) Plasma Cell # (Manual) Other Cells # Nucleated RBCs # (Man) Hypersegmented Neuts Hyposegmented Neuts Hypogranular Neuts Large Granular Lymphs # Lrg Granular Lymphs Hairy Cells Smudge Cells Toxic Granulation Toxic Vacuolation Dohle Bodies Shell Rods Platelet Estimate Hypogranular Platelets [place] Platelets Platelet Satelliting RBC Morphology Polychromasia Hypochromasia Poikilocytosis Basophilic Stippling Anisocytosis Microcytosis Macrocytosis Spherocytes Pappenheimer Bodies Sickle Cells Target Cells Tear Drop Cells Ovalocytes Stomatocytes [place] Bodies Echinocytes Acanthocytes (Spur) Rouleaux RBC Agglutinates Schistocytes [place] Cell Sodium (136-145) mmol/L Potassium (3.5-5.1) mmol/L Chloride (98-107) mmol/L Carbon Dioxide (21-32) mmol/L Anion Gap (3-11) BUN (6-23) mg/dl Creatinine (0.6-1.2) mg/dl Est Cr Clr Drug Dosing eGFR BUN/Creatinine Ratio (10-20) Glucose (70-99(Fasting)) mg/dl Calcium (8.6-10.3) mg/dl Magnesium (1.7-2.4) mg/dl Total Bilirubin (0.2-1.0) mg/dl AST (13-39) U/L ALT (7-52) U/L Alkaline Phosphatase (34-104) U/L Troponin I High Sens (0-14) pg/ml Total Protein (6.0-8.3) gm/dl Albumin (3.4-5.0) gm/dl Globulin (2.5-4.0) gm/dl Albumin/Globulin Ratio (0.9-2) 25-OH Vitamin D Total (30-100) ng/ml TSH (0.300-4.500) uIu/ml Urine Color Urine Appearance (Clear) Urine pH (4.5-7.5) Ur Specific [place] (1.000-1.030) Urine Protein (Negative) Urine Glucose (UA) (Negative) Urine Ketones (Negative) Urine Blood (Negative) Urine Nitrite (Negative) Urine Bilirubin (Negative) Urine Urobilinogen (Negative) Ur Leukocyte Esterase (Negative) Urine WBC (Auto) (0-5) /hpf Urine RBC (Auto) (0-2) /hpf U Hyaline Cast (Auto) (0-2) /lpf U Epithel Cells (Auto) (0-2) /hpf Urine Bacteria (Auto) (None Seen) Granular Casts (None Prsent) /lpf Urine Comment Adenovirus (PCR) (NotDetected) B. pertussis DNA (PCR) (NotDetected) B.parapertussis DNA PCR (NotDetected) C. pneumoniae DNA (PCR) (NotDetected) Coronavirus OC43 (PCR) (NotDetected) Coronavirus HKU1 (PCR) (NotDetected) Coronavirus 229E (PCR) (NotDetected) SARS-CoV-2 (PCR) (NotDetected) Coronavirus NL63 (PCR) (NotDetected) Human Metapneumovir PCR (NotDetected) Influenza Type A (PCR) (NotDetected) Influenza Type B (PCR) (NotDetected) M. pneumoniae (PCR) (NotDetected) Parainfluenza 1 (PCR) (NotDetected) Parainfluenza 2 (PCR) (NotDetected) Parainfluenza 3 (PCR) (NotDetected) Parainfluenza 4 (PCR) (NotDetected) RSV (PCR) (NotDetected) Entero/Rhino (PCR) (NotDetected) Blood Parasites ID 09/16/24 09/16/24 09/16/24 Range/Units 10:15 10:15 10:15 WBC RBC Hgb Hct MCV MCH MCHC RDW Std Deviation RDW Coeff of [place] Plt Count MPV Immature Gran % (Auto) Neut % (Auto) Lymph % (Auto) [place] % (Auto) Eos % (Auto) 0.0 Baso % (Auto) Cancelled 0.3 Neut # (Auto) Cancelled 9.31 H Lymph # (Auto) Cancelled [place] # (Auto) Eos # (Auto) Baso # (Auto) Immature Gran # (Auto) Absolute Nucleated RBC Nucleated RBC % (auto) Neutrophils % (Manual) Band Neutrophils % Lymphocytes % (Manual) Prolymphocyte % Reactive Lymphs % (Man) Monocytes % (Manual) Eosinophils % (Manual) Basophils % (Manual) Metamyelocytes % (Man) Myelocytes % (Man) Promyelocytes % (Man) Blast Cells % (Manual) Plasma Cell % (Manual) Other Cells % Nucleated RBC % Neutrophils # (Manual) Band Neutrophils # Total Absolute Neuts Lymphocytes # (Manual) Prolymphocyte # Reactive Lymphs # Total Abs Lymphocytes Monocytes # (Manual) Eosinophils # (Manual) Basophils # (Manual) Metamyelocytes # (Man) Myelocytes # (Manual) Promyelocytes # (Man) Blast Cells # (Man) Plasma Cell # (Manual) Other Cells # Nucleated RBCs # (Man) Hypersegmented Neuts Hyposegmented Neuts Hypogranular Neuts Large Granular Lymphs # Lrg Granular Lymphs Hairy Cells Smudge Cells Toxic Granulation Toxic Vacuolation Dohle Bodies Shell Rods Platelet Estimate Hypogranular Platelets [place] Platelets Platelet Satelliting RBC Morphology Polychromasia Hypochromasia Poikilocytosis Basophilic Stippling Anisocytosis Microcytosis Macrocytosis Spherocytes Pappenheimer Bodies Sickle Cells Target Cells Tear Drop Cells Ovalocytes Stomatocytes [place] Bodies Echinocytes Acanthocytes (Spur) Rouleaux RBC Agglutinates Schistocytes [place] Cell Sodium (136-145) mmol/L Potassium (3.5-5.1) mmol/L Chloride (98-107) mmol/L Carbon Dioxide (21-32) mmol/L Anion Gap (3-11) BUN (6-23) mg/dl Creatinine (0.6-1.2) mg/dl Est Cr Clr Drug Dosing eGFR BUN/Creatinine Ratio (10-20) Glucose (70-99(Fasting)) mg/dl Calcium (8.6-10.3) mg/dl Magnesium (1.7-2.4) mg/dl Total Bilirubin (0.2-1.0) mg/dl AST (13-39) U/L ALT (7-52) U/L Alkaline Phosphatase (34-104) U/L Troponin I High Sens (0-14) pg/ml Total Protein (6.0-8.3) gm/dl Albumin (3.4-5.0) gm/dl Globulin (2.5-4.0) gm/dl Albumin/Globulin Ratio (0.9-2) 25-OH Vitamin D Total (30-100) ng/ml TSH (0.300-4.500) uIu/ml Urine Color Urine Appearance (Clear) Urine pH (4.5-7.5) Ur Specific [place] (1.000-1.030) Urine Protein (Negative) Urine Glucose (UA) (Negative) Urine Ketones (Negative) Urine Blood (Negative) Urine Nitrite (Negative) Urine Bilirubin (Negative) Urine Urobilinogen (Negative) Ur Leukocyte Esterase (Negative) Urine WBC (Auto) (0-5) /hpf Urine RBC (Auto) (0-2) /hpf U Hyaline Cast (Auto) (0-2) /lpf U Epithel Cells (Auto) (0-2) /hpf Urine Bacteria (Auto) (None Seen) Granular Casts (None Prsent) /lpf Urine Comment Adenovirus (PCR) (NotDetected) B. pertussis DNA (PCR) (NotDetected) B.parapertussis DNA PCR (NotDetected) C. pneumoniae DNA (PCR) (NotDetected) Coronavirus OC43 (PCR) (NotDetected) Coronavirus HKU1 (PCR) (NotDetected) Coronavirus 229E (PCR) (NotDetected) SARS-CoV-2 (PCR) (NotDetected) Coronavirus NL63 (PCR) (NotDetected) Human Metapneumovir PCR (NotDetected) Influenza Type A (PCR) (NotDetected) Influenza Type B (PCR) (NotDetected) M. pneumoniae (PCR) (NotDetected) Parainfluenza 1 (PCR) (NotDetected) Parainfluenza 2 (PCR) (NotDetected) Parainfluenza 3 (PCR) (NotDetected) Parainfluenza 4 (PCR) (NotDetected) RSV (PCR) (NotDetected) Entero/Rhino (PCR) (NotDetected) Blood Parasites ID 09/16/24 09/16/24 09/16/24 Range/Units 10:15 10:15 10:15 WBC RBC Hgb Hct MCV MCH MCHC RDW Std Deviation RDW Coeff of [place] Plt Count MPV Immature Gran % (Auto) Neut % (Auto) Lymph % (Auto) [place] % (Auto) Eos % (Auto) Baso % (Auto) Neut # (Auto) Lymph # (Auto) 2.08 [place] # (Auto) Cancelled 1.53 H Eos # (Auto) Cancelled 0.00 Baso # (Auto) Cancelled Immature Gran # (Auto) Absolute Nucleated RBC Nucleated RBC % (auto) Neutrophils % (Manual) Band Neutrophils % Lymphocytes % (Manual) Prolymphocyte % Reactive Lymphs % (Man) Monocytes % (Manual) Eosinophils % (Manual) Basophils % (Manual) Metamyelocytes % (Man) Myelocytes % (Man) Promyelocytes % (Man) Blast Cells % (Manual) Plasma Cell % (Manual) Other Cells % Nucleated RBC % Neutrophils # (Manual) Band Neutrophils # Total Absolute Neuts Lymphocytes # (Manual) Prolymphocyte # Reactive Lymphs # Total Abs Lymphocytes Monocytes # (Manual) Eosinophils # (Manual) Basophils # (Manual) Metamyelocytes # (Man) Myelocytes # (Manual) Promyelocytes # (Man) Blast Cells # (Man) Plasma Cell # (Manual) Other Cells # Nucleated RBCs # (Man) Hypersegmented Neuts Hyposegmented Neuts Hypogranular Neuts Large Granular Lymphs # Lrg Granular Lymphs Hairy Cells Smudge Cells Toxic Granulation Toxic Vacuolation Dohle Bodies Shell Rods Platelet Estimate Hypogranular Platelets [place] Platelets Platelet Satelliting RBC Morphology Polychromasia Hypochromasia Poikilocytosis Basophilic Stippling Anisocytosis Microcytosis Macrocytosis Spherocytes Pappenheimer Bodies Sickle Cells Target Cells Tear Drop Cells Ovalocytes Stomatocytes [place] Bodies Echinocytes Acanthocytes (Spur) Rouleaux RBC Agglutinates Schistocytes [place] Cell Sodium (136-145) mmol/L Potassium (3.5-5.1) mmol/L Chloride (98-107) mmol/L Carbon Dioxide (21-32) mmol/L Anion Gap (3-11) BUN (6-23) mg/dl Creatinine (0.6-1.2) mg/dl Est Cr Clr Drug Dosing eGFR BUN/Creatinine Ratio (10-20) Glucose (70-99(Fasting)) mg/dl Calcium (8.6-10.3) mg/dl Magnesium (1.7-2.4) mg/dl Total Bilirubin (0.2-1.0) mg/dl AST (13-39) U/L ALT (7-52) U/L Alkaline Phosphatase (34-104) U/L Troponin I High Sens (0-14) pg/ml Total Protein (6.0-8.3) gm/dl Albumin (3.4-5.0) gm/dl Globulin (2.5-4.0) gm/dl Albumin/Globulin Ratio (0.9-2) 25-OH Vitamin D Total (30-100) ng/ml TSH (0.300-4.500) uIu/ml Urine Color Urine Appearance (Clear) Urine pH (4.5-7.5) Ur Specific [place] (1.000-1.030) Urine Protein (Negative) Urine Glucose (UA) (Negative) Urine Ketones (Negative) Urine Blood (Negative) Urine Nitrite (Negative) Urine Bilirubin (Negative) Urine Urobilinogen (Negative) Ur Leukocyte Esterase (Negative) Urine WBC (Auto) (0-5) /hpf Urine RBC (Auto) (0-2) /hpf U Hyaline Cast (Auto) (0-2) /lpf U Epithel Cells (Auto) (0-2) /hpf Urine Bacteria (Auto) (None Seen) Granular Casts (None Prsent) /lpf Urine Comment Adenovirus (PCR) (NotDetected) B. pertussis DNA (PCR) (NotDetected) B.parapertussis DNA PCR (NotDetected) C. pneumoniae DNA (PCR) (NotDetected) Coronavirus OC43 (PCR) (NotDetected) Coronavirus HKU1 (PCR) (NotDetected) Coronavirus 229E (PCR) (NotDetected) SARS-CoV-2 (PCR) (NotDetected) Coronavirus NL63 (PCR) (NotDetected) Human Metapneumovir PCR (NotDetected) Influenza Type A (PCR) (NotDetected) Influenza Type B (PCR) (NotDetected) M. pneumoniae (PCR) (NotDetected) Parainfluenza 1 (PCR) (NotDetected) Parainfluenza 2 (PCR) (NotDetected) Parainfluenza 3 (PCR) (NotDetected) Parainfluenza 4 (PCR) (NotDetected) RSV (PCR) (NotDetected) Entero/Rhino (PCR) (NotDetected) Blood Parasites ID 09/16/24 09/16/24 09/16/24 Range/Units 10:15 10:15 12:40 WBC RBC Hgb Hct MCV MCH MCHC RDW Std Deviation RDW Coeff of [place] Plt Count MPV Immature Gran % (Auto) Neut % (Auto) Lymph % (Auto) [place] % (Auto) Eos % (Auto) Baso % (Auto) Neut # (Auto) Lymph # (Auto) [place] # (Auto) Eos # (Auto) Baso # (Auto) 0.04 Immature Gran # (Auto) Cancelled 0.09 Absolute Nucleated RBC Cancelled Nucleated RBC % (auto) Cancelled Neutrophils % (Manual) Cancelled Band Neutrophils % Cancelled Lymphocytes % (Manual) Cancelled Prolymphocyte % Cancelled Reactive Lymphs % (Man) Cancelled Monocytes % (Manual) Cancelled Eosinophils % (Manual) Cancelled Basophils % (Manual) Cancelled Metamyelocytes % (Man) Cancelled Myelocytes % (Man) Cancelled Promyelocytes % (Man) Cancelled Blast Cells % (Manual) Cancelled Plasma Cell % (Manual) Cancelled Other Cells % Cancelled Nucleated RBC % Cancelled Neutrophils # (Manual) Cancelled Band Neutrophils # Cancelled Total Absolute Neuts Cancelled Lymphocytes # (Manual) Cancelled Prolymphocyte # Cancelled Reactive Lymphs # Cancelled Total Abs Lymphocytes Cancelled Monocytes # (Manual) Cancelled Eosinophils # (Manual) Cancelled Basophils # (Manual) Cancelled Metamyelocytes # (Man) Cancelled Myelocytes # (Manual) Cancelled Promyelocytes # (Man) Cancelled Blast Cells # (Man) Cancelled Plasma Cell # (Manual) Cancelled Other Cells # Cancelled Nucleated RBCs # (Man) Cancelled Hypersegmented Neuts Cancelled Hyposegmented Neuts Cancelled Hypogranular Neuts Cancelled Large Granular Lymphs Cancelled # Lrg Granular Lymphs Cancelled Hairy Cells Cancelled Smudge Cells Cancelled Toxic Granulation Cancelled Toxic Vacuolation Cancelled Dohle Bodies Cancelled Shell Rods Cancelled Platelet Estimate Cancelled Hypogranular Platelets Cancelled Giant Platelets Cancelled Platelet Satelliting Cancelled RBC Morphology Cancelled Polychromasia Cancelled Hypochromasia Cancelled Poikilocytosis Cancelled Basophilic Stippling Cancelled Anisocytosis Cancelled Microcytosis Cancelled Macrocytosis Cancelled Spherocytes Cancelled Pappenheimer Bodies Cancelled Sickle Cells Cancelled Target Cells Cancelled Tear Drop Cells Cancelled Ovalocytes Cancelled Stomatocytes Cancelled [place] Bodies Cancelled Echinocytes Cancelled Acanthocytes (Spur) Cancelled Rouleaux Cancelled RBC Agglutinates Cancelled Schistocytes Cancelled Sezary Cell Cancelled Sodium (136-145) mmol/L Potassium (3.5-5.1) mmol/L Chloride (98-107) mmol/L Carbon Dioxide (21-32) mmol/L Anion Gap (3-11) BUN (6-23) mg/dl Creatinine (0.6-1.2) mg/dl Est Cr Clr Drug Dosing eGFR BUN/Creatinine Ratio (10-20) Glucose (70-99(Fasting)) mg/dl Calcium (8.6-10.3) mg/dl Magnesium (1.7-2.4) mg/dl Total Bilirubin (0.2-1.0) mg/dl AST (13-39) U/L ALT (7-52) U/L Alkaline Phosphatase (34-104) U/L Troponin I High Sens (0-14) pg/ml Total Protein (6.0-8.3) gm/dl Albumin (3.4-5.0) gm/dl Globulin (2.5-4.0) gm/dl Albumin/Globulin Ratio (0.9-2) 25-OH Vitamin D Total (30-100) ng/ml TSH (0.300-4.500) uIu/ml Urine Color Yellow Urine Appearance Clear (Clear) Urine pH 5.0 (4.5-7.5) Ur Specific [place] 1.024 (1.000-1.030) Urine Protein 1+ H (Negative) Urine Glucose (UA) Negative (Negative) Urine Ketones Negative (Negative) Urine Blood Negative (Negative) Urine Nitrite Negative (Negative) Urine Bilirubin Negative (Negative) Urine Urobilinogen Negative (Negative) Ur Leukocyte Esterase Negative (Negative) Urine WBC (Auto) 0-5 (0-5) /hpf Urine RBC (Auto) 0-2 (0-2) /hpf U Hyaline Cast (Auto) 11-20 H (0-2) /lpf U Epithel Cells (Auto) 0-2 (0-2) /hpf Urine Bacteria (Auto) None Seen (None Seen) Granular Casts Present A (None Prsent) /lpf Urine Comment Adenovirus (PCR) (NotDetected) B. pertussis DNA (PCR) (NotDetected) B.parapertussis DNA PCR (NotDetected) C. pneumoniae DNA (PCR) (NotDetected) Coronavirus OC43 (PCR) (NotDetected) Coronavirus HKU1 (PCR) (NotDetected) Coronavirus 229E (PCR) (NotDetected) SARS-CoV-2 (PCR) (NotDetected) Coronavirus NL63 (PCR) (NotDetected) Human Metapneumovir PCR (NotDetected) Influenza Type A (PCR) (NotDetected) Influenza Type B (PCR) (NotDetected) M. pneumoniae (PCR) (NotDetected) Parainfluenza 1 (PCR) (NotDetected) Parainfluenza 2 (PCR) (NotDetected) Parainfluenza 3 (PCR) (NotDetected) Parainfluenza 4 (PCR) (NotDetected) RSV (PCR) (NotDetected) Entero/Rhino (PCR) (NotDetected) Blood Parasites ID Cancelled Administered Medications Discontinued Medications Sodium Chloride (Nss) 1,000 mls @ 999 mls/hr IV .[id number] ONE Stop: 09/16/24 11:44 Last Infusion: 09/16/24 12:16 Dose: Infused Documented By: Admin: 09/16/24 10:51 Dose: 999 mls/hr Documented By: CAROLYN Acetaminophen (Ofirmev) 1,000 mg in 100 mls @ 400 mls/hr IV NOW STA Stop: 09/16/24 10:58 Last Infusion: 09/16/24 11:19 Dose: Infused Documented By: Admin: 09/16/24 10:50 Dose: 400 mls/hr Documented By: CAROLYN Magnesium Sulfate/Dextrose (Magnesium Sulfate / D5w) 1 gm in 100 mls @ 100 mls/hr IV NOW STA Stop: 09/16/24 12:55 Last Infusion: 09/16/24 15:41 Dose: Infused Documented By: Admin: 09/16/24 12:58 Dose: 100 mls/hr Documented By: CAROLYN Magnesium Sulfate/Dextrose (Magnesium Sulfate / D5w) 1 gm in 100 mls @ 50 mls/hr IV Q2H DELL Stop: 09/16/24 17:29 Last Admin: 09/16/24 15:40 Dose: 50 mls/hr Documented By: Infusion: 09/16/24 15:38 Dose: Infused Documented By: Admin: 09/16/24 13:38 Dose: 50 mls/hr Documented By: CAROLYN Sodium Chloride (Nss) 1,000 mls @ 80 mls/hr IV .[id number] DELL Stop: 09/16/24 19:59 Last Infusion: 09/16/24 17:25 Dose: 0 mls/hr Documented By: Admin: 09/16/24 15:36 Dose: 80 mls/hr Documented By: DEVIN Ioversol (Optiray 320 125ml) 119 ml IV ONCE ONE Stop: 09/16/24 11:49 Last Admin: 09/16/24 11:49 Dose: 119 ml Documented By: QASIM Morphine Sulfate (Morphine Sulfate 2 Mg/Ml Carp) 2 mg IV NOW STA Stop: 09/16/24 12:36 Last Admin: 09/16/24 13:21 Dose: 2 mg Documented By: CAROLYN Ondansetron HCl (Ondansetron Inj 2 Mg/Ml 2 Ml Vial) 4 mg IV NOW STA Stop: 09/16/24 12:36 Last Admin: 09/16/24 13:21 Dose: 4 mg Documented By: CAROLYN Imaging Data Radiologist's Impression: Hip/Pelvis X-Ray 09/16/24 09:40 XR hip LT 2V w pelvis HISTORY: 68 years-old Female left hip pain acute left hip pain COMPARISON: None TECHNIQUE: AP view of the pelvis with 2 views of the left hip FINDINGS: Mild osteoarthritis of the hips. No acute fracture, dislocation or avascular necrosis. IMPRESSION: No acute fracture or dislocation. ACT 112: Negative or not required by law. The above report was generated using voice recognition software. It may contain grammatical, syntax or spelling errors. Electronically signed by: Daquan Martel M.D. 09/16/2024 11:02 AM Lumbar Spine X-Ray 09/16/24 09:40 XR lumbar spine 2-3V HISTORY: 68 years-old Female back pain, left hip pain acute low back pain COMPARISON: CT abdomen and pelvis 10/18/2023 TECHNIQUE: 3 views of the lumbar spine FINDINGS: Demineralized appearance of the bones. Levoscoliosis. Mild to moderate multilevel intervertebral disc space narrowing and spondylotic spurring with moderate facet arthrosis. 30% wedge deformity of the L1 vertebral body is chronic. Additional chronic L4 compression deformity and L5 superior endplate Schmorl's node. IMPRESSION: 1. No acute fracture or subluxation. 2. Chronic L1 and L4 compression deformities. 3. Levoscoliosis. ACT 112: Negative or not required by law. The above report was generated using voice recognition software. It may contain grammatical, syntax or spelling errors. Electronically signed by: Daquan Martel M.D. 09/16/2024 11:01 AM Chest X-Ray 09/16/24 09:41 XR chest 1V portable HISTORY: 68 years-old Female dizziness, SOB acute shortness of breath COMPARISON: 10/18/2023 TECHNIQUE: AP view of the chest FINDINGS: Cardiomediastinal and hilar silhouettes are within normal limits. Mild right basilar atelectasis versus scarring. No pneumothorax or pleural effusion. The lungs are clear. Bones appear grossly intact. IMPRESSION: No acute process. ACT 112: Negative or not required by law. The above report was generated using voice recognition software. It may contain grammatical, syntax or spelling errors. Electronically signed by: Daquan Martel M.D. 09/16/2024 10:[address] 09/16/24 09:44 CT head/brain wo con CLINICAL HISTORY: 68 years-old Female with dizziness. Acute dizziness TECHNIQUE: Multiple axial CT images of the head were obtained without contrast. A dose lowering technique was utilized adhering to the principles of ALARA. CT DOSE: 625.8 mGy.cm COMPARISON: 10/18/2023 FINDINGS: No acute intracranial hemorrhage, midline shift, intracranial mass, hydrocephalus, territorial ischemia or abnormal extra-axial collection. Involutional changes with white matter hypodensities suggestive of chronic microvascular ischemic disease. The calvarium is intact. Prior bilateral lens repair. The paranasal sinuses, mastoid air cells, and middle ear cavities are clear. IMPRESSION: No acute intracranial abnormality. ACT 112: Negative or not required by law. The above report was generated using voice recognition software. It may contain grammatical, syntax or spelling errors. Electronically signed by: Daquan Martel M.D. 09/16/2024 10:23 AM Abdomen/Pelvis CT 09/16/24 11:32 CT angio chest PE protocol, CT abd pelvis IV con only CT DOSE: 1505.19 mGy.cm HISTORY: 68 years-old Female with PE. Acute shortness of breath with chest and abdominal pain TECHNIQUE: Multiple CTA images of the chest were obtained after the intravenous administration of [address] abdomen and pelvis with IV contrast only was obtained. Coronal and sagittal MIPS were obtained from the axial data set and were submitted for review. All measurements were obtained according to NASCET criteria. A dose lowering technique was utilized adhering to the principles of ALARA. COMPARISON: 10/18/2023. FINDINGS: CTA: Heart is mildly enlarged. Trace pericardial effusion. Moderate coronary artery calcifications. Atherosclerosis of the aorta without aneurysm or dissection. No pulmonary emboli are seen. CT CHEST: No thyroid nodule. Calcified mediastinal and hilar lymph nodes compatible with prior granulomatous disease. No pneumothorax, pleural effusion or overt pulmonary edema. Groundglass and linear consolidative opacities of the lung bases. Right apical pleural-parenchymal scarring. Patent airways. Unremarkable soft tissues. No acute fracture. Degenerative changes of the shoulders and spine. 20%. Mild superior endplate compression deformity involves the T11 vertebral body of approximately 20% without retropulsion. Trace associated paravertebral edema. Bilateral cervical ribs. CT ABDOMEN AND PELVIS: No pneumatosis or pneumoperitoneum. Unremarkable spleen, mildly atrophic pancreas and adrenal glands. Gallbladder is within normal limits. Small left globe cyst. Patent portal vein. No hydronephrosis. Heterogeneous uterus with suggestion of postmenopausal endometrial thickening measuring up to 12 mm. Atherosclerosis of the aorta. No lymphadenopathy. Colonic diverticulosis without acute diverticulitis. Small hiatal hernia. No bowel obstruction. Normal appendix. Chronic appearing L1, L4 and L5 compression deformities are unchanged. Mild lumbar levoscoliosis. IMPRESSION: 1. Acute to subacute mild T11 compression deformity without retropulsion. 2. Chronic lumbar spine compression fractures. 3. No pulmonary emboli. 4. Bibasilar densities suggest atelectasis/scarring. 5. No bowel obstruction or bowel wall thickening. ACT 112: Negative or not required by law. The above report was generated using voice recognition software. It may contain grammatical, syntax or spelling errors. Electronically signed by: Daquan Martel M.D. 09/16/2024 12:19 PM Chest CTA 09/16/24 11:32 CT angio chest PE protocol, CT abd pelvis IV con only CT DOSE: 1505.19 mGy.cm HISTORY: 68 years-old Female with PE. Acute shortness of breath with chest and abdominal pain TECHNIQUE: Multiple CTA images of the chest were obtained after the intravenous administration of [address] abdomen and pelvis with IV contrast only was obtained. Coronal and sagittal MIPS were obtained from the axial data set and were submitted for review. All measurements were obtained according to NASCET criteria. A dose lowering technique was utilized adhering to the principles of ALARA. COMPARISON: 10/18/2023. FINDINGS: CTA: Heart is mildly enlarged. Trace pericardial effusion. Moderate coronary artery calcifications. Atherosclerosis of the aorta without aneurysm or dissection. No pulmonary emboli are seen. CT CHEST: No thyroid nodule. Calcified mediastinal and hilar lymph nodes compatible with prior granulomatous disease. No pneumothorax, pleural effusion or overt pulmonary edema. Groundglass and linear consolidative opacities of the lung bases. Right apical pleural-parenchymal scarring. Patent airways. Unremarkable soft tissues. No acute fracture. Degenerative changes of the shoulders and spine. 20%. Mild superior endplate compression deformity involves the T11 vertebral body of approximately 20% without retropulsion. Trace associated paravertebral edema. Bilateral cervical ribs. CT ABDOMEN AND PELVIS: No pneumatosis or pneumoperitoneum. Unremarkable spleen, mildly atrophic pancreas and adrenal glands. Gallbladder is within normal limits. Small left globe cyst. Patent portal vein. No hydronephrosis. Heterogeneous uterus with suggestion of postmenopausal endometrial thickening measuring up to 12 mm. Atherosclerosis of the aorta. No lymphadenopathy. Colonic diverticulosis without acute diverticulitis. Small hiatal hernia. No bowel obstruction. Normal appendix. Chronic appearing L1, L4 and L5 compression deformities are unchanged. Mild lumbar levoscoliosis. IMPRESSION: 1. Acute to subacute mild T11 compression deformity without retropulsion. 2. Chronic lumbar spine compression fractures. 3. No pulmonary emboli. 4. Bibasilar densities suggest atelectasis/scarring. 5. No bowel obstruction or bowel wall thickening. ACT 112: Negative or not required by law. The above report was generated using voice recognition software. It may contain grammatical, syntax or spelling errors. Electronically signed by: Daquan Martel M.D. 09/16/2024 12:19 PM Discharge Plan Visit Data Chief Complaint: Hip Pain Stated Complaint: SORE LEFT HIP, BACK ED Provider: Louise Ramírez ED Midlevel Provider: Erica Mallory Discharge Problem: Hypoxia, Compression fracture of T11 vertebra, Syncope, Fall, Acute pain of left hip, Pain in left lumbar region of back, Hypomagnesemia Patient Disposition: Admitted As Inpatient Condition: Good Discharge Instructions Interventions: ED Discharge Assessment Last Done: 09/16/24 16:37 Discharge Problem: Compression fracture of T11 vertebra Qualifiers: Encounter type: initial encounter Qualified Code(s): S22.080A - Wedge compression fracture of T11-T12 vertebra, initial encounter for closed fracture Syncope Qualifiers: Syncope type: unspecified Qualified Code(s): R55 - Syncope and collapse Fall Qualifiers: Encounter type: initial encounter Qualified Code(s): W19.XXXA - Unspecified fall, initial encounter
--- NOTE | 2024-09-16 10:25 | CT Scan Report ---
CT head/brain wo con CLINICAL HISTORY: 68 years-old Female with dizziness. Acute dizziness TECHNIQUE: Multiple axial CT images of the head were obtained without contrast. A dose lowering tech nique was utilized adhering to the principles of ALARA. CT DOSE: 625.8 mGy.cm COMPARISON: 10/18/2023 FINDINGS: No acute intracranial hemorrhage, midline shift, intracranial mass, hydrocephalus, territorial ischem ia or abnormal extra-axial collection. Involutional changes with white matter hypodensities suggestiv e of chronic microvascular ischemic disease. The calvarium is intact. Prior bilateral lens repair. The paranasal sinuses, mastoid air cells, and middle ear cavities are clear. IMPRESSION: No acute intracranial abnormality. ACT 112: Negative or not required by law. The above report was generated using voice recognition software. It may contain grammatical, syntax o r spelling errors. Electronically signed by: Daquan Martel M.D. 09/16/2024 10:23 AM
[2024-09-16 10:29] LABS: Alanine Aminotransferase 21 U/L (7-52); Albumin Globulin Ratio 1.2 (0.9-2); Albumin Level 4.3 gm/dl (3.4-5.0); Alkaline Phosphatase 84 U/L (34-104); Anion Gap 11 (3-11); Aspartate Aminotransferase 26 U/L (13-39); Bilirubin,Total 0.6 mg/dl (0.2-1.0); Blood Urea Nitrogen 28 mg/dl (6-23); Calcium 9.5 mg/dl (8.6-10.3); Carbon Dioxide 22 mmol/L (21-32); Chloride 103 mmol/L (98-107); Globulin 3.6 gm/dl (2.5-4.0); Glucose 114 mg/dl (70-99(Fasting)); Potassium 3.9 mmol/L (3.5-5.1); Sodium 136 mmol/L (136-145); Total Protein 7.9 gm/dl (6.0-8.3)
[2024-09-16 10:35] LABS: Troponin I High Sensitivity 3.9 pg/ml (0-14)
--- NOTE | 2024-09-16 10:47 | XRay Report ---
XR chest 1V portable HISTORY: 68 years-old Female dizziness, SOB acute shortness of breath COMPARISON: 10/18/2023 TECHNIQUE: AP view of the chest FINDINGS: Cardiomediastinal and hilar silhouettes are within normal limits. Mild right basilar atelectasis vers us scarring. No pneumothorax or pleural effusion. The lungs are clear. Bones appear grossly intact. IMPRESSION: No acute process. ACT 112: Negative or not required by law. The above report was generated using voice recognition software. It may contain grammatical, syntax o r spelling errors. Electronically signed by: Daquan Martel M.D. 09/16/2024 10:46 AM
[2024-09-16] MEDS: ACETAMINOPHEN 1,000 MG/100 ML VIAL IV STA (10:50)
[2024-09-16] MEDS: SODIUM CHLORIDE 0.9% 1,000 ML IV ONE (10:51)
--- NOTE | 2024-09-16 11:03 | XRay Report ---
XR lumbar spine 2-3V HISTORY: 68 years-old Female back pain, left hip pain acute low back pain COMPARISON: CT abdomen and pelvis 10/18/2023 TECHNIQUE: 3 views of the lumbar spine FINDINGS: Demineralized appearance of the bones. Levoscoliosis. Mild to moderate multilevel intervertebral disc space narrowing and spondylotic spurring with moderate facet arthrosis. 30% wedge deformity of the L 1 vertebral body is chronic. Additional chronic L4 compression deformity and L5 superior endplate Fern morl's node. IMPRESSION: 1. No acute fracture or subluxation. 2. Chronic L1 and L4 compression deformities. 3. Levoscoliosis. ACT 112: Negative or not required by law. The above report was generated using voice recognition software. It may contain grammatical, syntax o r spelling errors. Electronically signed by: Daquan Martel M.D. 09/16/2024 11:01 AM
--- NOTE | 2024-09-16 11:03 | XRay Report ---
XR hip LT 2V w pelvis HISTORY: 68 years-old Female left hip pain acute left hip pain COMPARISON: None TECHNIQUE: AP view of the pelvis with 2 views of the left hip FINDINGS: Mild osteoarthritis of the hips. No acute fracture, dislocation or avascular necrosis. IMPRESSION: No acute fracture or dislocation. ACT 112: Negative or not required by law. The above report was generated using voice recognition software. It may contain grammatical, syntax o r spelling errors. Electronically signed by: Daquan Martel M.D. 09/16/2024 11:02 AM
[2024-09-16 11:11] LABS: Adenovirus PCR Not Detected (NotDetected); Bordetella parapertussis PCR Not Detected (NotDetected); Bordetella pertussis PCR Not Detected (NotDetected); Chlamydia pneumoniae PCR Not Detected (NotDetected); Coronavirus 229E PCR Not Detected (NotDetected); Coronavirus CoV-2 (COVID19)PCR Not Detected (NotDetected); Coronavirus HKU1 PCR Not Detected (NotDetected); Coronavirus NL63 PCR Not Detected (NotDetected); Coronavirus OC43PCR Not Detected (NotDetected); Human Metapneumovirus PCR Not Detected (NotDetected); Influenza A PCR Not Detected (NotDetected); Influenza B PCR Not Detected (NotDetected); Mycoplasma pneumoniae PCR Not Detected (NotDetected); Parainfluenza Virus 1 PCR Not Detected (NotDetected); Parainfluenza Virus 2 PCR Not Detected (NotDetected); Parainfluenza Virus 3 PCR Not Detected (NotDetected); Parainfluenza Virus 4 PCR Not Detected (NotDetected); Respiratory Syncytial VirusPCR Not Detected (NotDetected); Rhinovirus/Enterovirus PCR Not Detected (NotDetected)
--- NOTE | 2024-09-16 11:32 | Emergency Department Note ---
ED Visit Note I was consulted by the Advanced Practice Provider, Erica Mallory PA-C. I performed a substantive portion of the visit. This includes aspects of: History: Patient is a 68 year old female presenting with feeling generally unwell for 2 days. She got up last night to take a COVID test and does not remember what happened afterwards. She fell at some point and woke up in a different room. Complaining of pain in her left flank and back as well as her left hip. MDM: - Laboratory workup interpreted by myself showed leukocytosis (WBC 13.05); hypomagnesemia (Mg 1.6); CKD (Cr 1.75(; normal troponin - UA negative for infection - CXR image reviewed by myself is negative for pneumonia, per my interpretation. - Xray pelvis with left hip views negative for fracture - Xray lumbar spine negative for fracture - Viral respiratory panel negative - Patient did have a episode of hypoxia while in the emergency department. Given her syncope versus presyncopal episode and transient hypoxia, CT PE obtained. - CT head wo contrast negative for acute pathology - CT PE negative for PE - CT abdomen/pelvis with IV contrast showed acute to subacute mild T11 compression deformity. - Attempted to wean patient from her 2 L nasal cannula. However, she did desaturate to 70% on room air and was placed on 2 L nasal cannula. Patient does not wear any supplemental oxygen at baseline. - Patient to be admitted to the inpatient hospitalist service for further evaluation and management. .
[2024-09-16] MEDS: OPTIRAY 320 125ml IV ONE (11:49)
[2024-09-16 12:13] LABS: Basophils # (auto) 0.04 K/uL (0.00-0.20); Basophils % (auto) 0.3 %; Hematocrit (blood only) 39.9 % (37.0-47.0); Hemoglobin 13.5 g/dl (12.0-16.0); Immature Granulocytes # (auto) 0.09 K/uL (0.01-0.20); Immature Granulocytes % (auto) 0.7 %; Lymphocytes # (auto) 2.08 K/uL (1.20-3.40); Lymphocytes % (auto) 15.9 %; Mean Corpuscular Hgb Conc 33.8 g/dL (32.0-36.0); Mean Corpuscular Volume 82.8 fL (80.0-100.0); Mean Platelet Volume 10.7 fL (9.4-12.4); Monocytes # (auto) 1.53 K/uL (0.11-0.59); Monocytes % (auto) 11.7 %; Neutrophils # (auto) 9.31 K/uL (1.40-6.50); Neutrophils % (auto) 71.4 %; Platelet Count 230 K/uL (130-400); RDW Coefficient of Variation 13.3 % (11.5-14.5); RDW Standard Deviation 40.1 fL (36.4-46.3); Red Blood Count 4.82 M/uL (4.20-5.40); White Blood Count 13.05 K/ul (4.8-10.8)
--- NOTE | 2024-09-16 12:21 | CT Scan Report ---
CT angio chest PE protocol, CT abd pelvis IV con only CT DOSE: 1505.19 mGy.cm HISTORY: 68 years-old Female with PE. Acute shortness of breath with chest and abdominal pain TECHNIQUE: Multiple CTA images of the chest were obtained after the intravenous administration of [address] abdomen and pelvis with IV contrast only was obtained. Coronal and sagittal MIPS wer e obtained from the axial data set and were submitted for review. All measurements were obtained acc ording to NASCET criteria. A dose lowering technique was utilized adhering to the principles of ALARA . COMPARISON: 10/18/2023. FINDINGS: CTA: Heart is mildly enlarged. Trace pericardial effusion. Moderate coronary artery calcifications. Athero sclerosis of the aorta without aneurysm or dissection. No pulmonary emboli are seen. CT CHEST: No thyroid nodule. Calcified mediastinal and hilar lymph nodes compatible with prior granulomatous di sease. No pneumothorax, pleural effusion or overt pulmonary edema. Groundglass and linear consolidati ve opacities of the lung bases. Right apical pleural-parenchymal scarring. Patent airways. Unremarkab le soft tissues. No acute fracture. Degenerative changes of the shoulders and spine. 20%. Mild superi or endplate compression deformity involves the T11 vertebral body of approximately 20% without retrop ulsion. Trace associated paravertebral edema. Bilateral cervical ribs. CT ABDOMEN AND PELVIS: No pneumatosis or pneumoperitoneum. Unremarkable spleen, mildly atrophic pancreas and adrenal glands. Gallbladder is within normal limits. Small left globe cyst. Patent portal vein. No hydronephrosis. H eterogeneous uterus with suggestion of postmenopausal endometrial thickening measuring up to 12 mm. A therosclerosis of the aorta. No lymphadenopathy. Colonic diverticulosis without acute diverticulitis. Small hiatal hernia. No bowel obstruction. Normal appendix. Chronic appearing L1, L4 and L5 compress ion deformities are unchanged. Mild lumbar levoscoliosis. IMPRESSION: 1. Acute to subacute mild T11 compression deformity without retropulsion. 2. Chronic lumbar spine compression fractures. 3. No pulmonary emboli. 4. Bibasilar densities suggest atelectasis/scarring. 5. No bowel obstruction or bowel wall thickening. ACT 112: Negative or not required by law. The above report was generated using voice recognition software. It may contain grammatical, syntax o r spelling errors. Electronically signed by: Daquan Martel M.D. 09/16/2024 12:19 PM
[2024-09-16 12:58] LABS: Appearance Urine Clear (Clear); Bacteria Urine Automated None Seen (None Seen); Bilirubin Urine Negative (Negative); Blood Urine Negative (Negative); Color Urine Yellow; Epithelial Cell Urine Auto 0-2 /hpf (0-2); Glucose Urine UA Negative (Negative); Granular Casts Urine Present /lpf (None Prsent); Ketones Urine Negative (Negative); Leukocyte Esterase Urine Negative (Negative); Nitrite Urine Negative (Negative); Protein Urine 1+ (Negative); RBC Urine Automated 0-2 /hpf (0-2); Specific Gravity Urine 1.024 (1.000-1.030); Urobilinogen Urine Negative (Negative); WBC Urine Automated 0-5 /hpf (0-5)
[2024-09-16] MEDS: MAGNESIUM SULFATE / D5W 1 GM/100 ML BAG IV STA (12:58)
--- NOTE | 2024-09-16 13:15 | History & Physical Report ---
Date of Service September 16, 2024 Assessment & Plan (1) Acute hypoxic respiratory failure: (2) Abnormal CT of the chest: (3) Syncope: (4) Compression fracture of T11 vertebra: (5) Acute pain of left hip: Plan Ms. Pompa is a 68 year old woman with past medical history remarkable for palpitations (ventricular ectopy), HLD, hypothyoridism, CKD IIIb, HTN, presented to [facility] ED due to syncopal episodes and left hip pain. Suspect syncope to be 2/2 poor intake, bp meds contributing to episodes reported. Suspect left hip pain based on radiation from back over iliac crest likely related to compression fractures. Hypoxia unclear, with Rad read of perhaps prior granulomatous disease #Acute hypoxic respiratory failure #abnormal chest ct no reported hx of resp illness/copd/asthma CT with groundglass and linear consolidative opacities of the lung bases, suggestive of atelectasis. Right apical pleural-parenchymal scarring. Calcified mediastinal and hilar lymph nodes compatible with prior granulomatous disease. No prior CT chest for comparison Patient without respiratory complaints BNP ordered, VBG ordered Seemingly hypovolemic/euvolemic on exam, s/p 1L fluids Hold on further fluids until ECHO and BNP Question about presence of nail kuwaiti, requested removal of nail ku[place]i and additional assessment ECHO as below #leukocytosis suspect reactive iso acute fracture and syncopal episodes/dehydration s/p 1L IVF in ed Trend CBC #Syncope #recent diarrheal illness stress echo reviewed from 10/2023, EF 55-59%, GIDD, no inducible ischemia CT PE with mildly enlarged heart, trace pericardial effusion, calcifications suspect orthostatic/vasovagal in nature given events occured s/p standing and recent illness relatively hypotensive on arrival TSH WNL, trop negative Orthostats ordered and positive, 130 lying to 116 standing s/p 1L NS asymptomatic BNP ordered ECHO ordered Carotids ordered Monitor on Tele Consider Cards contingent on echo/events on tele Hold amlodipine at his time #Acute to subacute mild T11 compression deformity #Chronic compression fractures #Pathologic fracture in osteoporosis Hip XRAY without fracture, CT with acute T11 and chronic L1, and L4-L5 refused DEXA in 2013 Vit D ordered TSLO brace ordered PT/OT analgesia prn #CKD IIIb Follows Dr Padilla, nephrology, baseline 1.4-1.7 in last year decline in last year was thought to be perhaps related to allergic intersitital nephritis as 2/2 to HCTZ initiation On this admission, Cr. at 1.75 Normal exam No evidence of fluid overload Trend BMP #HTN Currently on amlodipine and metoprolol Hold amlodipine iso relative hypotension Continue BB #Palpitations sensed ventricular ectopy, no recent episodes reported Continue metoprolol 100 mg daily replace magnesium #HLD Continue atorvastatin 40 mg daily #Hypothyroidism TSH this admission WNL continue home synthroid DVT heparin sq PCP July Admit to Med/Tele for eval of syncope and ongoing hypoxia Admission and Anticipated Discharge Date Admission Date: Time spent evaluating patient, direct bedside care, chart review, placing orders, interpretation of diagnostic studies, discussion with consultants, patient, and family members, as well as other required patient management activities is 75 minutes. History of Present Illness Chief Complaint: Syncope, Hip pain Primary Care Provider: Jose Marks MD Ms. Pompa is a 68 year old woman with past medical history remarkable for palpitations (ventricular ectopy), HLD, hypothyoridism, CKD IIIb, HTN, presented to [facility] ED due to syncopal episodes and left hip pain. Patient reports that she felt generally unwell on Tuesday evening, then Tuesday was still unwell (nonspecific malaise) with the addition of two diarrheal episodes. She notes her intake was poor that day and she still took her routine medications. In the middle of the night, she was worried about being COVID positive prior to a trip upcoming to [facility]. She notes that she felt her vision go dark and head heavy, ultimately falling to the ground. She was oriented quickly to what happened and was aware of the event. This occured once more and was followed by notable left hip pain. She states that her blood pressures are usually 110-120s at home. She denies any chest pain, palpitations, SOB/VINES. She denies further diarrheal episdoes and notes that she does intermittently have diarrhea. She denies sick contacts, cough/sputum, fevers/chills. She states her malaise has improved. She reports the pain in her hip seems to follow over her illiac crest from back to front. She was unable to bear weight but now is able to walk to bathroom. it was noted that she was desaturating while in the ED down to high 80s on room air. Orthostats were not obtianed. Patient asymptomatic--she denies asthma/COPD history or ongoing tobacco use now or previously. Patient with nail kuwaiti. In the ED, vitals were notable for BP of 95-110s, HR of 70-90s and O2 sat of high 90s on room air, corrected to high 90s on 2LNC. Labs with 13.05 WBC, BUN 28, Cr. 1.75, Mag 1.6, biofire negative, UA noninfectious Imaging revealed no PE, Heart is mildly enlarged. Trace pericardial effusion. Moderate coronary artery calcifications. Groundglass and linear consolidative opacities of the lung bases. Right apical pleural-parenchymal scarring. 20%. Mild superior endplate compression deformity involves the T11 vertebral body of approximately 20% without retropulsion. Trace associated paravertebral edema. EKG with NSR, QTC 428 ED interventions: 1L NS Patient to be admitted to med/tele for further evaluation and management of syncope and ?hypoxic resp failure Allergies Allergy/AdvReac Type Severity Reaction Status Date / Time hydrochlorothiazide Allergy Severe Rash Unverified 09/16/24 11:13 [From Maxzide] triamterene [From Maxzide] Allergy Severe Rash Unverified 09/16/24 11:13 Penicillins Allergy Intermediate childhood Verified 09/16/24 11:13 allergy Home Medications Medication Instructions Recorded Confirmed Type metoprolol succinate 100 mg 100 mg PO QAM 05/26/19 09/16/24 History tablet,extended release 24 hr atorvastatin 40 mg tablet 40 mg PO QA 10/18/23 09/16/24 History levothyroxine 50 mcg tablet 50 mcg PO QA 10/18/23 09/16/24 History amlodipine 5 mg tablet 5 mg PO HS 09/16/24 09/16/24 History omeprazole magnesium 20 mg 20 mg PO QAM 09/16/24 09/16/24 History tablet,delayed release (Prilosec OTC) Past Med/Surg History Problem List (Updated 09/16/24 @ 15:29 by Yasmine Farah MD) Abnormal CT of the chest Acute hypoxic respiratory failure Hypomagnesemia (Acute) Pain in left lumbar region of back (Acute) Acute pain of left hip (Acute) Fall (Acute) Syncope (Acute) Compression fracture of T11 vertebra (Acute) Hypoxia (Acute) Osteoarthritis of left knee Hematuria, microscopic High cholesterol (Chronic) Hypertension (Acute) Medical History (Updated 09/16/24 @ 15:29 by Yasmine Farah MD) Hypothyroidism Essential hypertension Family History Father Diabetes Heart disease Hypertension Sister Cervical cancer Social History Smoking Status: Never smoker Hx Alcohol Use: No Preferred Language: Malian marital status: current occupational status: retired Feels Safe at Home: Yes Review of Systems Review of Systems: Constitutional: (-) fever/chills, (-) recent loss of weight, (-) appetite changes, (-) night sweats. Head: (-) headache, (-) dizziness. Eye: (-) blurring of vision, (-) double vision, (-) redness. Ear: (-) hearing loss, (-) discharge, (-) vertigo Nose: (-) discharge, (-) bleeding, (-) congestion, (-) post nasal drip. Throat: (-) sore throat, (-) hoarseness of voice, (-) odynophagia. Cardiovascular: (-) chest pain, (-) palpitations, (++) syncope, (-) orthopnea, (-) PND, (-) leg swelling. Respiratory: (-) shortness of breath, (-) cough, (-) wheezing, (-) hemoptysis. Neuro: (-) weakness in extremities, (-) numbness, (-) tingling, (-) tremor. Gastrointestinal: (-) belly pain, (-) belly distension, (-) nausea, (-) vomiti ng, (-) diarrhea, (-) constipation Genitourinary: (-) hematuria, (-) dysuria, (-) polyuria, (-) hesitancy, (-) frequency, (-) urinary incontinence. Musculoskeletal: (-) myalgia, (+) pain Skin: (-) rashes. Endocrine: (-) heat/cold intolerance. Psychiatry: (-) depression, (-) hallucination. Physical Exam Physical Exam: GENERAL APPEARANCE: AxOx4, generally well-appearing F, no acute distress but with some mild anxiety HEENT: NC, AT. MMM. EOMI, clear conjunctiva, oropharynx clear. NECK: Supple without lymphadenopathy. No stiffness or restricted ROM. HEART: Normal rate and regular rhythm, normal S1/S1, no m/r/g LUNGS: CTAB, moving air well. No crackles or wheezes are heard. ABDOMEN: Soft, nontender, nondistended with good bowel sounds heard. BACK: No CVAT, no obvious deformity mild paravertebral tenderness mid-back EXTREMITIES: Without cyanosis, clubbing or edema. LLE with 5/5 strength, however, proximal muscle groups limited 2/2 pain NEUROLOGICAL: Grossly nonfocal. Alert and oriented, moving all 4 extremities. CN not formally tested but appear grossly intact. Skin: Warm and dry without any rash. Results & Data Results & Data Vital Signs (Past 12 Hours) Vital Signs Temp Pulse Pulse Resp BP BP Pulse Ox 09/16/24 09:45 90 09/16/24 09:41 95 09/16/24 09:27 95 09/16/24 09:26 91 H 20 106/76 84 L 09/16/24 09:23 36.4 C L 86 20 95/65 L 94 O2 Del Method O2 Flow Rate 09/16/24 09:45 09/16/24 09:41 Nasal Cannula 2 09/16/24 09:27 Nasal Cannula 2 09/16/24 09:26 Room Air 09/16/24 09:23 Room Air Laboratory Results Short CBC 09/16/24 09/16/24 09/16/24 Range/Units 10:15 10:15 10:15 WBC Cancelled 13.05 H Hgb Cancelled 13.5 Hct Cancelled Plt Count 09/16/24 09/16/24 Range/Units 10:15 10:15 WBC Hgb Hct 39.9 Plt Count Cancelled 230 BMP 09/16/24 09:41 Sodium 136 Potassium 3.9 Chloride 103 Carbon Dioxide 22 BUN 28 H Creatinine 1.75 H Glucose 114 H Calcium 9.5 Liver Function 09/16/24 Range/Units 09:41 Total Bilirubin 0.6 (0.2-1.0) mg/dl AST 26 (13-39) U/L ALT 21 (7-52) U/L Alkaline Phosphatase 84 (34-104) U/L Albumin 4.3 (3.4-5.0) gm/dl Urine 09/16/24 Range/Units 12:40 Urine Color Yellow Urine Appearance Clear (Clear) Urine pH 5.0 (4.5-7.5) Ur Specific [place] 1.024 (1.000-1.030) Urine Protein 1+ H (Negative) Urine Glucose (UA) Negative (Negative) Diagnostic Findings CT angio chest PE protocol, CT abd pelvis IV con only CT DOSE: 1505.19 mGy.cm HISTORY: 68 years-old Female with PE. Acute shortness of breath with chest and abdominal pain TECHNIQUE: Multiple CTA images of the chest were obtained after the intravenous administration of [address] abdomen and pelvis with IV contrast only was obtained. Coronal and sagittal MIPS were obtained from the axial data set and were submitted for review. All measurements were obtained according to NASCET criteria. A dose lowering technique was utilized adhering to the principles of ALARA. COMPARISON: 10/18/2023. FINDINGS: CTA: Heart is mildly enlarged. Trace pericardial effusion. Moderate coronary artery calcifications. Atherosclerosis of the aorta without aneurysm or dissection. No pulmonary emboli are seen. CT CHEST: No thyroid nodule. Calcified mediastinal and hilar lymph nodes compatible with prior granulomatous disease. No pneumothorax, pleural effusion or overt pulmonary edema. Groundglass and linear consolidative opacities of the lung bases. Right apical pleural-parenchymal scarring. Patent airways. Unremarkable soft tissues. No acute fracture. Degenerative changes of the shoulders and spine. 20%. Mild superior endplate compression deformity involves the T11 vertebral body of approximately 20% without retropulsion. Trace associated paravertebral edema. Bilateral cervical ribs. CT ABDOMEN AND PELVIS: No pneumatosis or pneumoperitoneum. Unremarkable spleen, mildly atrophic pancreas and adrenal glands. Gallbladder is within normal limits. Small left globe cyst. Patent portal vein. No hydronephrosis. Heterogeneous uterus with suggestion of postmenopausal endometrial thickening measuring up to 12 mm. Atherosclerosis of the aorta. No lymphadenopathy. Colonic diverticulosis without acute diverticulitis. Small hiatal hernia. No bowel obstruction. Normal appendix. Chronic appearing L1, L4 and L5 compression deformities are unchanged. Mild lumbar levoscoliosis. IMPRESSION: 1. Acute to subacute mild T11 compression deformity without retropulsion. 2. Chronic lumbar spine compression fractures. 3. No pulmonary emboli. 4. Bibasilar densities suggest atelectasis/scarring. 5. No bowel obstruction or bowel wall thickening. Medications Administered Home Medications Medication Instructions Recorded Confirmed Last Taken metoprolol succinate 100 mg 100 mg PO QA 05/26/19 09/16/24 09/16/24 tablet,extended release 24 hr atorvastatin 40 mg tablet 40 mg PO QA 10/18/23 09/16/24 09/16/24 levothyroxine 50 mcg tablet 50 mcg PO QA 10/18/23 09/16/24 09/16/24 amlodipine 5 mg tablet 5 mg PO 09/16/24 09/16/24 09/15/24 omeprazole magnesium 20 mg 20 mg PO [facility] 09/16/24 09/16/24 09/16/24 tablet,delayed release (Prilosec OTC) (3) Syncope Syncope type: unspecified Qualified Code(s): R55 - Syncope and collapse (4) Compression fracture of T11 vertebra Encounter type: initial encounter Qualified Code(s): S22.080A - Wedge compression fracture of T11-T12 vertebra, initial encounter for closed fracture
[2024-09-16] MEDS: ONDANSETRON INJ 2 MG/ML 2 ML VIAL IV STA (13:21)
[2024-09-16] MEDS: MoRPHine SULFATE 2 MG/ML CARP IV STA (13:21)
[2024-09-16] MEDS: MAGNESIUM SULFATE / D5W 1 GM/100 ML BAG IV SCH (13:38)
--- NOTE | 2024-09-16 14:09 | Electrocardiogram Report ---
Test Reason : Blood Pressure : */* mmHG Vent. Rate : 100 BPM Atrial Rate : 100 BPM P-R Int : 160 ms QRS Dur : 80 ms QT Int : 332 ms P-R-T Axes : 41 18 7 degrees QTcB Int : 428 ms Poor data quality, interpretation may be adversely affected Normal sinus rhythm Nonspecific ST and T wave abnormality Abnormal ECG When compared with ECG of 18-Oct-2023 12:09, No significant change was found Confirmed by Parker Sims ([id number]) on 09/16/2024 2:08:56 PM Referred By: Confirmed By: Parker Sims
[2024-09-16] MEDS: SODIUM CHLORIDE 0.9% 1,000 ML IV SCH (15:36)
[2024-09-16 15:47] LABS: HCO3 VBG 23 mmol/L; Oxygen Saturation VBG < 60.0 %; PCO2 VBG 42 mmHg (38-50); PO2 VBG 35 mmHg; pH VBG 7.34 (7.36-7.41)
[2024-09-16] MEDS ORDERED: HYDROmorphone INJ 0.5 MG/0.5 ML SYR IV PRN (17:23)
[2024-09-16] MEDS: oxyCODONE HCL IR 5 MG TAB (IMMEDIATE RELEASE) PO PRN (17:55)
[2024-09-16] MEDS: ACETAMINOPHEN 500 MG TAB PO PRN (20:42)
[2024-09-16] MEDS: HEPARIN SOD 5,000 UNIT/0.5 ML VIAL SQ SCH (20:42)
--- NOTE | 2024-09-16 23:55 | Ultrasound Report ---
Exam(s): US CAROTID EXAM: US Duplex Bilateral Extracranial Arteries CLINICAL HISTORY: Reason for exam: syncope. TECHNIQUE: Real-time duplex ultrasound scan of the extracranial arteries integrating B-mode two-dimensional vascular structure, Doppler spectral analysis and color flow Doppler imaging. COMPARISON: No relevant prior studies available. FINDINGS: Right common carotid artery: Atherosclerotic plaque. No occlusion or significant stenosis on color flow and spectral Doppler imaging. Right internal carotid artery: Atherosclerotic plaque. Peak systolic velocity 94 cm/s. No occlusion or significant stenosis on color flow and spectral Doppler imaging. Right external carotid artery: Unremarkable. No occlusion or significant stenosis on color flow and spectral Doppler imaging. Right vertebral artery: Unremarkable. Antegrade flow. Right ICA/CCA ratio: 0.9. Within normal limits. Left common carotid artery: Atherosclerotic plaque. No occlusion or significant stenosis on color flow and spectral Doppler imaging. Left internal carotid artery: Atherosclerotic plaque. Peak systolic velocity 108 cm/s. No occlusion or significant stenosis on color flow and spectral Doppler imaging. Left external carotid artery: Unremarkable. No occlusion or significant stenosis on color flow and spectral Doppler imaging. Left vertebral artery: Unremarkable. Antegrade flow. Left ICA/CCA ratio: 1.1. Within normal limits. CAROTID STENOSIS REFERENCE USING IAC CRITERIA: Mild - <50% stenosis. ICA PSV is less than 180 cm/s and plaque or intimal thickening is visible. Moderate - 50-69% stenosis. ICA PSV is 180 to 230 cm/s and plaque is visible. Severe - 70-94% stenosis. ICA PSV is more than 230 cm/s and visible plaque with lumen narrowing is seen. Near occlusion - 95-99% stenosis. ICA PSV is variable and significant plaque with luminal narrowing is seen. Occluded - 100% stenosis. No flow identified. IMPRESSION: Estimated less than 50% stenosis in the bilateral ICAs by sonographic criteria. Electronically signed by: Ally Vaughan M.D. 09/16/24 23:54 PM
[2024-09-17] MEDS: LEVOTHYROXINE SODIUM 50 MCG TABLET PO SCH (06:15)
--- NOTE | 2024-09-17 08:15 | Orthopedic Consultation ---
Date of Service September 17, 2024 Assessment & Plan (1) Compression fracture of T11 vertebra: Patient is being consulted today due to an acute to subacute compression deformity at T11. Patient does state that she had a fall within the last 2 days but does not have any significant back pain. She does not have any tenderness on exam today. I am not confident that her T11 compression deformity was a result of her fall about 2 days ago due to her lack of pain and tenderness. Did explain to the patient that compression deformities can happen without a fall, such as sneezing, rolling over, etc. She does not note any changes to her back pain over the last few weeks, months or even years. She does have chronic deformities at L1, L4 and L5. She states that she does not see a ophthalmology assistant or is not discussed with her primary care provider osteoporosis. I do suggest that this is something she should look into when she is discharged from the hospital. I am also not confident that her groin pain is coming from her hip joint as exam is negative for any hip pathology and her images are negative for any acute fractures. It may be radiating from her lumbar spine. There is still nothing surgically that needs to be done for this patient from a spine perspective. Would recommend pain control, physical therapy, TLSO if the patient feels this would be helpful for her. She may continue to be weightbearing as tolerated in the bilateral lower extremities. Please reach out to orthopedic spine with any other question concerns. History of Present Illness Reason for Consultation: T11 compression fracture Requesting Physician: . Attending Physician: Yifan Ga DO Jannet is a 68-year-old female who has been admitted to the hospital for left hip pain, ambulatory dysfunction and is being consulted today due to an acute to subacute T11 compression fracture. Patient states that she had a fall about 2 days ago. She is unsure how she fell but she had left flank pain as well as left hip pain. She did report to the emergency department were all images for the hip were negative for any acute processes. She did have a CT of the abdomen pelvis which did show an acute to subacute T11 compression fracture with chronic appearing L1, L4 and L5 compression fractures. Orthopedic spine was asked to see the patient today due to this finding of an acute to subacute T11 compression fracture. Patient states that she does not have much back pain. States that her left groin pain is actually the most bothersome to her. States she is unable to walk due to this pain. She states that she is very active. She states that she exercises 3 times a week and also started an exercising club. States that she is upset that she is down for a little while and unable to do this. She denies any other fall, trauma or any other possible injury over the last few months in regards to her back. States that she does not have much back pain. She denies any numbness, tingling or deficits in the bilateral lower extremities. She denies any bowel or bladder disturbances. Allergies Allergy/AdvReac Type Severity Reaction Status Date / Time hydrochlorothiazide Allergy Severe Rash Unverified 09/16/24 11:13 [From Maxzide] triamterene [From Maxzide] Allergy Severe Rash Unverified 09/16/24 11:13 Penicillins Allergy Intermediate childhood Verified 09/16/24 11:13 allergy Home Medications Medication Instructions Recorded Confirmed Type metoprolol succinate 100 mg 100 mg PO [facility] 05/26/19 09/16/24 History tablet,extended release 24 hr atorvastatin 40 mg tablet 40 mg PO QA 10/18/23 09/16/24 History levothyroxine 50 mcg tablet 50 mcg PO QA 10/18/23 09/16/24 History amlodipine 5 mg tablet 5 mg PO HS 09/16/24 09/16/24 History omeprazole magnesium 20 mg 20 mg PO QA 09/16/24 09/16/24 History tablet,delayed release (Prilosec OTC) Past Med/Surg History Problem List (Updated 09/17/24 @ 14:19 by Yifan Ga DO) Osteoporotic compression fracture of spine Acute kidney injury Acute viral syndrome Orthostatic syncope Abnormal CT of the chest Acute hypoxic respiratory failure Hypomagnesemia (Acute) Pain in left lumbar region of back (Acute) Acute pain of left hip (Acute) Fall (Acute) Syncope (Acute) Compression fracture of T11 vertebra (Acute) Hypoxia (Acute) Osteoarthritis of left knee Hematuria, microscopic High cholesterol (Chronic) Hypertension (Acute) Medical History (Updated 09/17/24 @ 14:19 by Yifan Ga DO) Hypothyroidism Essential hypertension Family History Father Diabetes Heart disease Hypertension Sister Cervical cancer Social History Smoking Status: Never smoker Hx Alcohol Use: No Hx Substance Use: No Preferred Language: Yoruba Communication Ability: Effective Human Resources Intern Required: No Beliefs That Will Affect Care: None marital status: Current Living Situation: Spouse current occupational status: retired Feels Safe at Home: Yes Safety Concerns: Feels Safe At This Time Assistive Devices: None Review of Systems All systems reviewed & are unremarkable except as noted in HPI & below. Physical Exam General: Alert and oriented. No acute distress. Constitutional WD/WN, vitals as above Musculoskeletal no cyanosis or clubbing, extremities motor strength 5/5 Patient is resting in her hospital bed. She is able to sit up independently. She has no tenderness to the spine or the paraspinal area. She does have a streak of ecchymosis on the left upper back. She does not have back pain when she is performing range of motion at the waist. She states that her hip pain when ambulating is the most bothersome. She has a negative logroll. She has 5 out of 5 strength in the bilateral lower extremities. She has a negative straight leg raise. Neurovascularly intact in the bilateral lower extremities. Skin no rashes, warm and dry Psychiatric Alert and oriented x 3. She is tearful at today's visit. Results & Data Results & Data Laboratory Results . Diagnostic Findings I did independently review all of the following imaging series: CT of the abdomen pelvis that was done on 09/16/2024: I do agree with the impression below that there is a T11 compression deformity that I was not able to see on any of the imaging below. There are chronic fractures at L1, L4 and L5. IMPRESSION: 1. Acute to subacute mild T11 compression deformity without retropulsion. 2. Chronic lumbar spine compression fractures. I did review a CT of the pelvis on 04/11/[address] of the abdomen pelvis on 05/26/2019. Her L1, L4 and L5 compression deformities were noted at that time on these images. PG Care Time/CCT Total # of Minutes Spent Total Time Spent with Patient: Total time spent is greater than 50% in coordination of care (as documented) at patient's floor/unit and/or counseling patient: Coding Level of Care Code 04712 IN/OBS CONSULT LVL 4,60M Diagnoses Compression fracture of T11 vertebra S22.080A Encounter type: initial encounter (1) Compression fracture of T11 vertebra Encounter type: initial encounter Qualified Code(s): S22.080A - Wedge compression fracture of T11-T12 vertebra, initial encounter for closed fracture
[2024-09-17] MEDS: ATORVASTATIN 40 MG TAB PO SCH (08:46)
[2024-09-17] MEDS: PANTOprazole 40 MG TAB PO SCH (08:46)
[2024-09-17] MEDS: METOPROLOL SUCC 50MG EXT REL TAB PO SCH (08:46)
[2024-09-17 09:42] LABS: Hematocrit (blood only) 35.8 % (37.0-47.0); Hemoglobin 12.1 g/dl (12.0-16.0); Mean Corpuscular Hemoglobin 28.2 pg (25.0-34.0); Mean Corpuscular Hgb Conc 33.8 g/dL (32.0-36.0); Mean Corpuscular Volume 83.4 fL (80.0-100.0); Mean Platelet Volume 10.2 fL (9.4-12.4); Platelet Count 185 K/uL (130-400); RDW Coefficient of Variation 13.5 % (11.5-14.5); Red Blood Count 4.29 M/uL (4.20-5.40); White Blood Count 9.71 K/ul (4.8-10.8)
[2024-09-17 10:00] LABS: BUN Creatinine Ratio 17.8 (10-20); Calcium 8.9 mg/dl (8.6-10.3); Creatinine Clr Calc Pharmacy 33.1 ml/min; Magnesium 2.4 mg/dl (1.7-2.4); Potassium 4.1 mmol/L (3.5-5.1)
[2024-09-17] MEDS: MAGNESIUM SULFATE / D5W 1 GM/100 ML BAG IV SCH (10:24)
--- NOTE | 2024-09-17 10:33 | Pulmonary Consultation ---
Date of Consultation September 17, 2024 Assessment & Plan (1) Acute hypoxic respiratory failure: (2) Abnormal CT of the chest: Plan CTA chest 09/16/2024 personally reviewed: Right apical pleural scarring with pleural calcification Dependent atelectasis bilateral lower lobe with interface lines Calcified mediastinal and hilar lymph nodes with no significant mediastinal lymphadenopathy 2D echo 09/16/2024: EF 55-60%, RV normal in size and function, grade 1 diastolic dysfunction -- Acute hypoxic respiratory failure Likely secondary to VQ mismatch found dependent atelectasis bilateral lower lobe Pulmonary of autoimmune related ILD is low but cannot be ruled out Patient denies any personal or family history of any autoimmune disease. BNP 29 Respiratory BioFire negative for everything on 09/16/2024 Plan: Recommend incentive spirometry Patient does have Velcro-like crackles on the physical exam CAT scan of the chest shows bilateral linear atelectasis with interface lines. No clear honeycombing or bronchiectasis. Patient denies any personal or family history of any autoimmune disease. Autoimmune workup to be drawn tomorrow. I spent more than 75 minutes looking in the chart, images, discussing the plan of care with the patient, RN as well as primary team Please note the above document was generated using voice recognition software. It may contain grammatical, syntax or spelling errors.Any formal questions or concerns about the content, text or information contained within the body of this dictation should be directly addressed to the provider for clarification. History of Present Illness Attending Physician: Yifan Ga DO History of Present Illness 68-year-old female was admitted to the hospital for syncopal episode Past medical history: Dyslipidemia, hypothyroidism, hypertension, CKD, ventricular ectopy Pulmonary consulted for hypoxia At the time of examination patient was saturating 95-96% on 1 L oxygen. I was able to take her off oxygen and she was still saturating 92-93% Patient stated that usually she keeps an eye on her oxygen saturation and is always around 93-94%. She does not have usually issues with her breathing. Able to do her day-to-day activities and even exert herself any significant shortness of breath No chest pain right now. Denies any issues with pulmonary infections while growing up Denies any personal or family history of any autoimmune disease like lupus, sarcoid, Sjogren's, rheumatoid. No Raynaud's. No dry eyes, no dry mouth, no difficulty swallowing Social history: Lifetime non-smoker. Used to work as a ec teacher No birds or poultry nearby. Allergies Allergy/AdvReac Type Severity Reaction Status Date / Time hydrochlorothiazide Allergy Severe Rash Unverified 09/16/24 11:13 [From Maxzide] triamterene [From Maxzide] Allergy Severe Rash Unverified 09/16/24 11:13 Penicillins Allergy Intermediate childhood Verified 09/16/24 11:13 allergy Home Medications Medication Instructions Recorded Confirmed Type metoprolol succinate 100 mg 100 mg PO QAM 05/26/19 09/16/24 History tablet,extended release 24 hr atorvastatin 40 mg tablet 40 mg PO QAM 10/18/23 09/16/24 History levothyroxine 50 mcg tablet 50 mcg PO QAM 10/18/23 09/16/24 History amlodipine 5 mg tablet 5 mg PO HS 09/16/24 09/16/24 History omeprazole magnesium 20 mg 20 mg PO QAM 09/16/24 09/16/24 History tablet,delayed release (Prilosec OTC) Patient History Medical History (Updated 09/17/24 @ 14:19 by Yifan Ga DO) Hypothyroidism Essential hypertension Family History Father Diabetes Heart disease Hypertension Sister Cervical cancer Social History Smoking Status: Never smoker Hx Alcohol Use: No Hx Substance Use: No Preferred Language: Nepali Communication Ability: Effective Pneudraulic Systems Mechanic Required: No Beliefs That Will Affect Care: None marital status: Current Living Situation: Spouse current occupational status: retired Feels Safe at Home: Yes Safety Concerns: Feels Safe At This Time Assistive Devices: None Review of Systems 2 Review of Systems: All systems reviewed & are unremarkable except as noted in HPI & below Physical Exam 2 Physical Exam: Constitutional: No acute distress HEENT: EOMI, PERRLA Respiratory system: Good air entry bilaterally, no wheeze, rhonchi, positive Velcro-like crackles appreciated bilaterally CVS: S1-S2 positive, no murmurs or gallops Abdomen: Soft, nontender, nondistended, positive bowel sounds x4 Extremities: +2 pulses bilaterally radialis/ dorsalis pedis, no cyanosis, no edema Neuro: Awake alert oriented x3 Psych: Normal mood and affect G/U: No Huynh Skin: no rashes, warm and dry Lymphatic: no cervical or axillary lymphadenopathy Results & Data Results & Data Vital Signs (Past 12 Hours) Vital Signs Temp Pulse Pulse Resp BP BP Pulse Ox 09/17/24 07:33 37.2 C 81 18 104/68 86 L 09/17/24 07:16 70 09/17/24 04:00 36.6 C 77 18 121/79 94 09/16/24 23:00 36.9 C 81 18 102/68 94 O2 Del Method 09/17/24 07:33 Room Air 09/17/24 07:16 09/17/24 04:00 Room Air 09/16/24 23:00 Room Air Laboratory Results 09/17/24 09:27 09/17/24 09:27 PG Care Time/CCT Total # of Minutes Spent Total Time Spent with Patient: Total time spent is greater than 50% in coordination of care (as documented) at patient's floor/unit and/or counseling patient: Coding Level of Care Code 94489 INT INP/OBS CARE 3/75MIN Diagnoses Acute hypoxic respiratory failure J96.[address] of the chest R93.89
[2024-09-17] MEDS: MAGNESIUM OXIDE 400 MG TAB PO SCH (11:32)
--- NOTE | 2024-09-17 14:21 | Hospitalist Progress Note ---
Date of Service September 17, 2024 Assessment & Plan (1) Acute hypoxic respiratory failure: Plan: Due to atelectasis (2) Orthostatic syncope: (3) Acute kidney injury: (4) Acute viral syndrome: (5) Osteoporotic compression fracture of spine: (6) Compression fracture of T11 vertebra: Plan Patient 68-year-old female who most likely started with some type of acute viral syndrome the end of last week, did not eat or drink well on Tuesday and had diarrhea. Subsequently had orthostatic syncopal event overnight between Tuesday and Tuesday morning. Patient with evidence of acute kidney injury most likely due to dehydration and associated hypotension. Compression fracture may be subacute, most likely due to osteoporosis. Patient with persistent hypoxia most likely due to atelectasis Encourage incentive spirometry Pain is controlled Continue to hold amlodipine, monitor orthostatic vital signs Continue metoprolol To step oxygen testing tomorrow morning determine if patient requires oxygen at home Acute kidney injury has improved with hydration, continue to monitor Anticipate discharge tomorrow with or without oxygen Admission and Anticipated Discharge Date Admission Date: September 16, 2024 Subjective Patient's back and hip pain completely resolved. Denies any real shortness of b reath but continues to be hypoxic. Eager to get home. Physical Exam Physical Exam: Constitutional: Alert, nontoxic, no acute distress HEENT: Mucous membranes moist. Lungs: Decreased breath sounds, scattered crackles throughout, no wheezes CV: S1-S2, regular Abdomen: Soft, nontender, nondistended Extremities: No significant edema Neuro: No focal deficits Psych: Cooperative, normal mood Results & Data Results & Data Vital Signs (Past 12 Hours) Vital Signs Temp Pulse Pulse Resp BP BP Pulse Ox 09/17/24 13:36 09/17/24 13:04 36.6 C 78 10 L 114/74 93 09/17/24 08:40 09/17/24 07:33 37.2 C 81 18 104/68 86 L 09/17/24 07:16 70 09/17/24 04:00 36.6 C 77 18 121/79 94 Pulse Ox Pulse Ox Pulse Ox O2 Del Method O2 Flow Rate O2 Flow Rate O2 Flow Rate 09/17/24 13:36 94 94 87 L 1.5 1.5 09/17/24 13:04 Room Air 09/17/24 08:40 Nasal Cannula 2 09/17/24 07:33 Room Air 09/17/24 07:16 09/17/24 04:00 Room Air O2 Flow Rate 09/17/24 13:36 1.5 09/17/24 13:04 09/17/24 08:40 09/17/24 07:33 09/17/24 07:16 09/17/24 04:00 Diagnostic Findings Reviewed imaging, laboratory and diagnostic studies. Pertinent findings as below. Creatinine 1.52, improved CBC stable Reviewed CTA report, no PE, atelectasis Carotid Dopplers negative for stenosis (6) Compression fracture of T11 vertebra Encounter type: initial encounter Qualified Code(s): S22.080A - Wedge compression fracture of T11-T12 vertebra, initial encounter for closed fracture
--- NOTE | 2024-09-18 06:59 | Pulmonology Progress Note ---
Date of Service September 18, 2024 Assessment & Plan (1) Acute hypoxic respiratory failure: (2) Abnormal CT of the chest: Plan CTA chest 09/16/2024 personally reviewed: Right apical pleural scarring with pleural calcification Dependent atelectasis bilateral lower lobe with interface lines Calcified mediastinal and hilar lymph nodes with no significant mediastinal lymphadenopathy 2D echo 09/16/2024: EF 55-60%, RV normal in size and function, grade 1 diastolic dysfunction -- Acute hypoxic respiratory failure Likely secondary to VQ mismatch found dependent atelectasis bilateral lower lobe Pulmonary of autoimmune related ILD is low but cannot be ruled out Patient denies any personal or family history of any autoimmune disease. BNP 29 Respiratory BioFire negative for everything on 09/16/2024 Plan: Continue with Patient does have Velcro-like crackles on the physical exam CAT scan of the chest shows bilateral linear atelectasis with interface lines. No clear honeycombing or bronchiectasis. Her ESR and CRP are mildly elevated which makes me think that she might have an any underlying autoimmune process going on. Follow-up autoimmune workup from today Can follow-up with pulmonary as an outpatient for PFT and possible HRCT Case was discussed with Dr. Ang Please note the above document was generated using voice recognition software. It may contain grammatical, syntax or spelling errors.Any formal questions or concerns about the content, text or information contained within the body of this dictation should be directly addressed to the provider for clarification. Admission and Anticipated Discharge Date Admission Date: September 16, 2024 Subjective Patient seen and examined at bedside. No acute distress, normal sinus overnight She was saturating 95-96% on room air She stated that she did 2 step and needed oxygen on exertion She was little emotional that she is needing oxygen now. Emotional support and education was given to her. Denies any cough. No chest pain No nausea vomiting, fair appetite No unusual headache or blurry vision Review of Systems 2 Review of Systems: All systems reviewed & are unremarkable except as noted in Subjective Physical Exam 2 Physical Exam: Constitutional: No acute distress HEENT: EOMI, PERRLA Respiratory system: Good air entry bilaterally, no wheeze, no rhonchi, positive Velcro-like crackles appreciated bilaterally CVS: S1-S2 positive, no murmurs or gallops Abdomen: Soft, nontender, nondistended, positive bowel sounds x4 Extremities: +2 pulses bilaterally radialis/ dorsalis pedis, no cyanosis, no edema Neuro: Awake alert oriented x3 Psych: Normal mood and affect G/U: No Huynh Skin: no rashes, warm and dry Lymphatic: no cervical or axillary lymphadenopathy Results & Data Results & Data Vital Signs (Past 12 Hours) Vital Signs Temp Pulse Resp BP Pulse Ox Pulse Ox O2 Del Method 09/17/24 20:20 Room Air, Nasal Cannula 09/17/24 20:20 93 09/17/24 20:20 37.2 C 86 16 135/82 93 Room Air O2 Del Method O2 Flow Rate 09/17/24 20:20 2 09/17/24 20:20 Room Air 09/17/24 20:20 Laboratory Results 09/17/24 09:27 09/17/24 09:27 PG Care Time/CCT Total # of Minutes Spent Total Time Spent with Patient: Total time spent is greater than 50% in coordination of care (as documented) at patient's floor/unit and/or counseling patient: Coding Level of Care Code 51222 SUB INP/OBS CARE 2/35MIN Diagnoses Acute hypoxic respiratory failure J96.[address] of the chest R93.89
[2024-09-18 07:47] VITALS: BP 129/73; PULSE 78; RESP 16; TEMP 98.4; O2SAT 92
[2024-09-18 08:29] LABS: C Reactive Protein 11.08 mg/dl (0-0.5); Calcium 8.9 mg/dl (8.6-10.3); Creatinine Clr Calc Pharmacy 34.2 ml/min; Potassium 4.1 mmol/L (3.5-5.1)
--- NOTE | 2024-09-18 11:29 | Hospitalist Progress Note ---
Date of Service September 18, 2024 Assessment & Plan (1) Acute hypoxic respiratory failure: Plan: CT evidence of bibasilar densities suggestive of atelectasis/scarring Denies any shortness of breath or symptoms at rest Appreciate pulmonary input and recommendation Autoimmune workup is underway She will need oxygen with ambulation as per 2 steps O2 saturation test today She has had physical therapy and will be discharged home this afternoon (2) Orthostatic syncope: (3) Acute kidney injury: Plan: Has chronic kidney disease Renal function with creatinine was 1.97 on 10/18/2023 and 1.47 on 09/18/2024 She was advised to drink more fluid (4) Acute viral syndrome: Plan: Bio fire has been negative (5) Osteoporotic compression fracture of spine: Plan: Acute to subacute mild T11 compression deformity without retropulsion Has chronic lumbar spine compression fractures No radiculopathic symptoms Has been using back brace when ambulating Has had PT and OT evaluation in the hospital (6) Compression fracture of T11 vertebra: Plan Notes from the prior hospitalist: Patient 68-year-old female who most likely started with some type of acute viral syndrome the end of last week, did not eat or drink well on Tuesday and had diarrhea. Subsequently had orthostatic syncopal event overnight between Tuesday and Tuesday morning. Patient with evidence of acute kidney injury most likely due to dehydration and associated hypotension. Compression fracture may be subacute, most likely due to osteoporosis. Patient with persistent hypoxia most likely due to atelectasis Encourage incentive spirometry Pain is controlled Continue to hold amlodipine, monitor orthostatic vital signs Continue metoprolol To step oxygen testing tomorrow morning determine if patient requires oxygen at home Acute kidney injury has improved with hydration, continue to monitor Anticipate discharge tomorrow with or without oxygen Admission and Anticipated Discharge Date Admission Date: September 16, 2024 Subjective 09/18/2024 The patient was seen and examined in medical floor in presence of the She has been stable and denies any significant symptoms at rest She has had 2 steps O2 saturation test and she will need oxygen with ambulation Denies any chest pain, palpitation or shortness of breath even with minimal exertion Complaints minimal pain in the Left groin likely secondary to osteoarthritis of the Left hip She will be discharged home this afternoon Review of Systems Review of Systems: All systems reviewed and are unremarkable except as noted below Physical Exam Physical Exam: Sitting on a chair without any acute distress Constitutional: well developed and well nourished; not ill appearing Eyes: PERRL, conjunctivae normal, anicteric sclerae ENMT: external ear and nose normal, oropharynx normal Neck: trachea midline, no thyromegaly Respiratory: no respiratory distress Auscultation: lungs clear to ausc ultation bilaterally ( minimal decreased breath sounds at the bases with occasional crackles) and + crackles Cardiovascular: Rate/Rhythm: regular rate and regular rhythm; not tachycardic Heart Sounds: normal S1 and normal S2; no murmur Gastrointestinal (Abdomen): Inspection/Auscultation: normal bowel sounds; abdomen not distended Percussion/Palpation: abdomen soft; abdomen nontender Musculoskeletal: No acute arthritis involving any of the joint Neurologic: normal touch/pain/proprioception and moves all extremities; no focal motor deficits Psychiatric: A+Ox3, euthymic affect Lymphatic: no cervical or axillary lymphadenopathy Results & Data Results & Data Vital Signs (Past 12 Hours) Vital Signs Temp Pulse Pulse Pulse Pulse Resp Resp 09/18/24 08:00 09/18/24 07:46 36.9 C 78 16 09/18/24 07:46 90 96 H 86 18 Resp Resp BP Pulse Ox Pulse Ox Pulse Ox Pulse Ox 09/18/24 08:00 09/18/24 07:46 129/73 92 09/18/24 07:46 20 18 91 87 L 90 O2 Del Method O2 Flow Rate 09/18/24 08:00 Room Air 09/18/24 07:46 Room Air 09/18/24 07:46 2 Laboratory Results BMP 09/18/24 07:40 Sodium 135 L Potassium 4.1 Chloride 104 Carbon Dioxide 22 BUN 28 H Creatinine 1.47 H Glucose 86 Calcium 8.9 Cardiac Enzymes 09/18/24 Range/Units 07:40 Total Creatine Kinase 81 (26-192) U/L Medications Administered Current Inpatient Medications Acetaminophen (Acetaminophen 500 Mg Tab) 1,000 mg PO Q8H PRN PRN Reason: Mild Pain (Scale 1, 2, 3) Stop: 10/16/24 17:22 Last Admin: 09/16/24 20:42 Dose: 1,000 mg Atorvastatin Calcium (Atorvastatin 40 Mg Tab) 40 mg PO QAM [facility] Stop: 10/17/24 08:59 Last Admin: 09/18/24 08:07 Dose: 40 mg Heparin Sodium (Porcine) (Heparin Sod 5,000 Unit/0.5 Ml Vial) 5,000 units SQ Q12 [facility] Stop: 10/16/24 20:59 Last Admin: 09/18/24 08:08 Dose: 5,000 units Hydromorphone HCl (Hydromorphone Inj 0.5 Mg/0.5 Ml Syr) 0.5 mg IV Q4H PRN PRN Reason: Severe Pain (Scale 7, 8, 9,10) Stop: 09/30/24 17:22 Levothyroxine Sodium (Levothyroxine Sodium 50 Mcg Tablet) 50 mcg PO DAILYBB [facility] Stop: 10/17/24 06:29 Last Admin: 09/18/24 05:42 Dose: 50 mcg Magnesium Oxide (Magnesium Oxide 400 Mg Tab) 400 mg PO BID [facility] Stop: 10/17/24 08:59 Last Admin: 09/18/24 08:07 Dose: 400 mg Metoprolol Succinate (Metoprolol Succ 50mg Ext Rel Tab) [facility] [place] Stop: 10/17/24 08:59 Last Admin: 09/18/24 08:07 Dose: 100 mg Oxycodone HCl (Oxycodone Hcl Ir 5 Mg Tab (Immediate Release)) 5 mg PO Q6H PRN PRN Reason: Moderate Pain (Scale 4, 5, 6) Stop: 09/30/24 17:22 Last Admin: 09/17/24 21:25 Dose: 5 mg Pantoprazole Sodium (Pantoprazole 40 Mg Tab) 40 mg PO QAM [facility] Stop: 10/17/24 08:59 Last Admin: 09/18/24 08:07 Dose: 40 mg (6) Compression fracture of T11 vertebra Encounter type: initial encounter Qualified Code(s): S22.080A - Wedge compression fracture of T11-T12 vertebra, initial encounter for closed fracture
--- NOTE | 2024-09-19 07:13 | Discharge Summary ---
Date of Service September 19, 2024 Admission HPI Per Admitting Provider Ms. Pompa is a 68 year old woman with past medical history remarkable for palpitations (ventricular ectopy), HLD, hypothyoridism, CKD IIIb, HTN, presented to [facility] ED due to syncopal episodes and left hip pain. Patient reports that she felt generally unwell on Tuesday evening, then Tuesday was still unwell (nonspecific malaise) with the addition of two diarrheal episodes. She notes her intake was poor that day and she still took her routine medications. In the middle of the night, she was worried about being COVID positive prior to a trip upcoming to [facility]. She notes that she felt her vision go dark and head heavy, ultimately falling to the ground. She was oriented quickly to what happened and was aware of the event. This occured once more and was followed by notable left hip pain. She states that her blood pressures are usually 110-120s at home. She denies any chest pain, palpitations, SOB/VINES. She denies further diarrheal episdoes and notes that she does intermittently have diarrhea. She denies sick contacts, cough/sputum, fevers/chills. She states her malaise has improved. She reports the pain in her hip seems to follow over her illiac crest from back to front. She was unable to bear weight but now is able to walk to bathroom. it was noted that she was desaturating while in the ED down to high 80s on room air. Orthostats were not obtianed. Patient asymptomatic--she denies asthma/COPD history or ongoing tobacco use now or previously. Patient with nail indian. In the ED, vitals were notable for BP of 95-110s, HR of 70-90s and O2 sat of high 90s on room air, corrected to high 90s on 2LNC. Labs with 13.05 WBC, BUN 28, Cr. 1.75, Mag 1.6, biofire negative, UA noninfectious Imaging revealed no PE, Heart is mildly enlarged. Trace pericardial effusion. Moderate coronary artery calcifications. Groundglass and linear consolidative opacities of the lung bases. Right apical pleural-parenchymal scarring. 20%. Mild superior endplate compression deformity involves the T11 vertebral body of approximately 20% without retropulsion. Trace associated paravertebral edema. EKG with NSR, QTC 428 ED interventions: 1L NS Patient to be admitted to med/tele for further evaluation and management of syncope and ?hypoxic resp failure Admission Exam Per Admitting Provider Physical Exam: GENERAL APPEARANCE: AxOx4, generally well-appearing F, no acute distress but with some mild anxiety HEENT: NC, AT. MMM. EOMI, clear conjunctiva, oropharynx clear. NECK: Supple without lymphadenopathy. No stiffness or restricted ROM. HEART: Normal rate and regular rhythm, normal S1/S1, no m/r/g LUNGS: CTAB, moving air well. No crackles or wheezes are heard. ABDOMEN: Soft, nontender, nondistended with good bowel sounds heard. BACK: No CVAT, no obvious deformity mild paravertebral tenderness mid-back EXTREMITIES: Without cyanosis, clubbing or edema. LLE with 5/5 strength, however, proximal muscle groups limited 2/2 pain NEUROLOGICAL: Grossly nonfocal. Alert and oriented, moving all 4 extremities. CN not formally tested but appear grossly intact. Skin: Warm and dry without any rash. Principal Diagnosis Orthostatic syncope Acute hypoxia due to atelectasis Acute kidney injury, improved Osteoporosis Discharge Exam Sitting on a chair without any acute distress Constitutional well developed and well nourished; not ill appearing Eyes PERRL, conjunctivae normal, anicteric sclerae ENMT external ear and nose normal, oropharynx normal Neck trachea midline, no thyromegaly Respiratory no respiratory distress Auscultation: lungs clear to auscultation bilaterally ( minimal decreased breath sounds at the bases with occasional crackles) and + crackles Cardiovascular Rate/Rhythm: regular rate and regular rhythm; not tachycardic Heart Sounds: normal S1 and normal S2; no murmur Gastrointestinal (Abdomen) Inspection/Auscultation: normal bowel sounds; abdomen not distended Percussion/Palpation: abdomen soft; abdomen nontender Neurologic normal touch/pain/proprioception and moves all extremities; no focal motor deficits Psychiatric A+Ox3, euthymic affect Lymphatic no cervical or axillary lymphadenopathy Discharge Data Allergies Allergy/AdvReac Type Severity Reaction Status Date / Time hydrochlorothiazide Allergy Severe Rash Unverified 09/16/24 11:13 [From Maxzide] triamterene [From Maxzide] Allergy Severe Rash Unverified 09/16/24 11:13 Penicillins Allergy Intermediate childhood Verified 09/16/24 11:13 allergy Consultations 09/16/24 13:14 ED Decision to Admit Stat 09/16/24 22:00 Consult Orthopedic Spine Surgery Routine 09/17/24 09:02 Consult Pulmonology Routine Ordered Studies 09/16/24 09:44 CT head/brain wo con Stat 09/16/24 11:32 CT Abd and Pelvis [CT abd pelvis IV con only] Stat CT for pulmonary embolism PE [CT angio chest PE protocol] Stat 09/16/24 14:28 Carotid duplex [US carotid doppler BI] Routine Hospital Course (1) Acute hypoxic respiratory failure: CT evidence of bibasilar densities suggestive of atelectasis/scarring Denies any shortness of breath or symptoms at rest Appreciate pulmonary input and recommendation Autoimmune workup is underway She will need oxygen with ambulation as per 2 steps O2 saturation test today She has had physical therapy and will be discharged home this afternoon (2) Orthostatic syncope: (3) Acute kidney injury: Has chronic kidney disease Renal function with creatinine was 1.97 on 10/18/2023 and 1.47 on 09/18/2024 She was advised to drink more fluid (4) Acute viral syndrome: Bio fire has been negative (5) Osteoporotic compression fracture of spine: Acute to subacute mild T11 compression deformity without retropulsion Has chronic lumbar spine compression fractures No radiculopathic symptoms Has been using back brace when ambulating Has had PT and OT evaluation in the hospital (6) Compression fracture of T11 vertebra: Plan Notes from the prior hospitalist: Patient 68-year-old female who most likely started with some type of acute viral syndrome the end of last week, did not eat or drink well on Tuesday and had diarrhea. Subsequently had orthostatic syncopal event overnight between Tuesday and Tuesday morning. Patient with evidence of acute kidney injury most likely due to dehydration and associated hypotension. Compression fracture may be subacute, most likely due to osteoporosis. Patient with persistent hypoxia most likely due to atelectasis Encourage incentive spirometry Pain is controlled Continue to hold amlodipine, monitor orthostatic vital signs Continue metoprolol To step oxygen testing tomorrow morning determine if patient requires oxygen at home Acute kidney injury has improved with hydration, continue to monitor Anticipate discharge tomorrow with or without oxygen Total Time Total Time Spent Total Time Spent (In Minutes): 35 Minutes Discharge Plan Discharge Items Patient Disposition: Home - Self-Care Reason For Visit: SYNCOPE Discharge Diagnosis: Orthostatic syncope Acute hypoxia due to atelectasis Acute kidney injury, improved Osteoporosis Condition on Discharge: Good Activity: Resume your previous activity Activity Comment: As tolerated Non-emergency contact: Primary Care Provider Call non-emergency contact if: your symptoms worsen Follow-up/Referrals: Jose Marks MD [Primary Care Provider] - 09/25/24 2:40 pm (Date & Time 09/25/2024 2:40 PM Provider: Jose Marks MD [facility]) Diet: Heart Healthy Addtl Attending Provider Instructions: Follow-up with your PCP Discuss osteoporosis treatment or testing with your PCP Please take precautions to avoid falls Please use the walking device when you have walk around You will use oxygen at 2 L/min while ambulant and none at rest Please keep appointments with your healthcare providers Use spirometry as advised Pending Studies at Discharge: No Stand-Alone Forms: [employer], Smoking Cessation Medications and DC Order Prescriptions: Continued metoprolol succinate 100 mg tablet extended release 24 hr 100 mg PO QAM atorvastatin 40 mg tablet 40 mg PO QAM levothyroxine 50 mcg tablet 50 mcg PO QAM omeprazole magnesium [Prilosec OTC] 20 mg Tablet,Delayed Release (Dr/Ec) 20 mg PO QAM Discontinued amlodipine 5 mg tablet 5 mg PO HS Discharge Orders: Discharge Order (Routine); Ordered 09/18/24 Ordered By: Rojas Ang Admission Data Admit Date/Time: 09/16/24 14:28 Attending Provider: Rojas Ang Admit Provider: Yasmine Farah Primary Care Provider: Jose Marks Other Providers: Jerome Hughes; Chayo Jerez; Laurel Godoy I.; Natalie Gonzalez; Rojas Ang; Kusum Connor; Josseline Spann; Dunia Nazario; Darren Jimenez; Jt Goncalves; Italo Payan; Jensen Okeefe; Blank Nickerson; Gerson Buchanan; Diana Rodriguez; Pratibha Martinez; Kaelyn Alexis; Ev Miranda; Heidi Ho; Nikky Gordillo I.; Oswaldo Stallworth; Vasu Hare; Jillian Martinez; Torey Canela; Giovani Neumann; Roger Rogers; Yasmine Farah; Marita Wilson; Yifan Ga; Mejia Nation; Christos Schaffer; Oswaldo Mccloud; Henrique Christiansen; Sabas Hirsch; Daksha Thomas; Ally Majano; Ally Ray; Quentin Phillips; Boo Eduardo Other Interventions: Discharge Summary Assessment (RN) Last Done: 09/18/24 11:57
== END 2024-09-18 13:31 | disposition home or self-care (01) | DRG 312 ==
LOC: ED 09:09 → 2W 14:28 → SUATTDRO 14:28 → 2W 16:37 → 3N 09-17 20:07